=== PATIENT | male | born 1955 | race Caucasian/White ===

== ENCOUNTER → 2017-02-28 | Outpatient (CLI) | payer OTHER ==
[~2017-02-28] MED LIST: CHOL2000 PO
--- NOTE | 2017-02-28 09:17 | DIAGNOSTIC IMAGING REPORT ---
RENAL ULTRASOUND HISTORY: E21.3 Hyperparathyroidism E83.52 Hypercalcemia Looking for kidney abnormality. COMPARISON: None. FINDINGS: Right kidney: 12.2 cm. No hydronephrosis. Normal corticomedullary differentiation and cortical thickness. Large upper pole simple cyst measuring 11 x 10 x 10 cm. Left kidney: 12.8 cm. No hydronephrosis. Normal corticomedullary differentiation and cortical thickness. A 3.4 x 3.3 x 3.1 cm upper pole cyst. Bladder: Bladder is not well-distended. No definite bladder wall thickening. The bilateral ureteral jets are not identified during the examination. The prostate is enlarged measuring 5.5 cm. IMPRESSION: 1. Bilateral renal cysts. 2. No hydronephrosis. 3. The prostate gland is enlarged. Electronically signed by: Cheikh Owusu M.D. 02/28/2017 9:16 AM Dictated Date/Time: 02/28/2017 9:14 AM
== END | disposition home or self-care (01) ==
LOC: C.ULTR 08:36
PROVIDERS: ATTEND Internal Medicine Endocrinology, Diabetes & Metabolism
DX: E83.52 Hypercalcemia (principal); E21.3 Hyperparathyroidism, unspecified; N28.1 Cyst of kidney, acquired; N40.0 Benign prostatic hyperplasia without lower urinary tract symptoms

== ENCOUNTER → 2017-03-22 | Outpatient (CLI) | payer OTHER | END | disposition home or self-care (01) | LOC: C.MAMM 08:53 | PROVIDERS: ATTEND Internal Medicine Endocrinology, Diabetes & Metabolism | DX: M85.851 Other specified disorders of bone density and structure, right thigh (principal); M85.852 Other specified disorders of bone density and structure, left thigh; E21.3 Hyperparathyroidism, unspecified ==

== ENCOUNTER 2017-04-22 11:15 | Emergency (ER) | payer OTHER ==
[~2017-04-22] VITALS: Ht 177.8 cm; Wt 100.7 kg
[2017-04-22 11:17] VITALS: TEMP 36.3; Ht 177.8 cm; Wt 100.7 kg
[2017-04-22] MEDS ORDERED: ONDANSETRON INJ 2 MG/ML 2 ML VIAL IV STA (11:39)
[2017-04-22] MEDS ORDERED: SODIUM CHLORIDE 0.9% 1000ML 1,000 ML IV STA (11:39)
[2017-04-22] MEDS ORDERED: MoRPHine SULFATE 4 MG/ML 1 ML CARP\\VIAL IV PRN (11:45)
[2017-04-22 12:16] LABS: BASO % 0.1 %; BASO ABS # 0.01 K/uL (0-0.2); HEMATOCRIT 42.9 % (42-52); HEMOGLOBIN 14.7 g/dL (14.0-18.0); IG# 0.03 K/uL (0.00-0.02); LYMPH % 4.8 %; LYMPH ABS # 0.56 K/uL (1.2-3.4); MEAN CELL VOLUME 86.7 fL (80-100); MEAN CORPUSCULAR HEMOGLOBIN 29.7 pg (25-34); MEAN CORPUSCULAR HGB CONC 34.3 g/dl (32-36); MEAN PLATELET VOLUME 10.4 fL (7.4-10.4); MONO % 3.5 %; MONO ABS # 0.41 K/uL (0.11-0.59); NEUT % 91.3 %; NEUT ABS # 10.64 K/uL (1.4-6.5); PLATELET COUNT 194 K/uL (130-400); RED CELL DISTRIBUTION WIDTH CV 12.9 % (11.5-14.5); RED CELL DISTRIBUTION WIDTH SD 41.3 fL (36.4-46.3); WHITE BLOOD COUNT 11.65 K/uL (4.8-10.8)
[2017-04-22 12:17] LABS: ALBUMIN 4.2 gm/dl (3.4-5.0); CREATININE 1.1 mg/dl (0.60-1.40); POTASSIUM 3.9 mmol/L (3.5-5.1)
[2017-04-22 12:20] LABS: TOTAL PROTEIN 7.2 gm/dl (6.4-8.2)
--- NOTE | 2017-04-22 12:35 | DIAGNOSTIC IMAGING REPORT ---
ABDOMEN 2VIEW W/PA CHEST RTN HISTORY: 62 years-old Male ABDOMINAL PAIN/GI acute generalized abdominal pain COMPARISON: None available TECHNIQUE: PA view of the chest with erect and supine views of the abdomen FINDINGS: Cardiomediastinal and hilar silhouettes are within normal limits. Linear subsegmental left basilar opacity suggests area of atelectasis or scarring. There is no pneumothorax, pleural effusion or overt pulmonary edema. No lobar airspace consolidation. The bones of the chest appear grossly intact. No pneumoperitoneum or pneumatosis identified. Gas-filled loop of bowel the left midabdomen measuring up to 4.0 cm suggests a loop of large bowel. Mildly distended air-filled loop of small bowel within the central abdomen measuring up to 3.6 cm transversely suggests duodenum without gastric dilation identified. Moderate volume of formed stool involves the right hemicolon and proximal transverse colon. No definite urolith identified. Round calcification of the right hemipelvis suggests a phlebolith. Degenerative changes are seen within the hips and lower lumbar spine. IMPRESSION: 1. No acute process of the chest. 2. Air-filled mildly dilated loop of small bowel within the central abdomen suggests duodenum without gastric distention identified and may be physiologic or reflect sentinel loop ileus. 3. No high-grade small bowel obstruction or pneumoperitoneum identified. The above report was generated using voice recognition software. It may contain grammatical, syntax or spelling errors. Electronically signed by: Uzair Mccarty M.D. 04/22/2017 12:34 PM Dictated Date/Time: 04/22/2017 12:30 PM
[2017-04-22] MEDS ORDERED: DOCUSATE SODIUM 100 MG CAP PO ONE (12:45)
[2017-04-22] MEDS ORDERED: OPTIRAY 320 IV PRN (12:45)
[2017-04-22] MEDS ORDERED: MAGNESIUM CITRATE 296 ML/BTL PO ONE (12:45)
[2017-04-22] MEDS ORDERED: TAMS0.4C38 PO (13:07)
[2017-04-22] MEDS ORDERED: CHOL20005 PO (13:07)
--- NOTE | 2017-04-22 13:27 | DIAGNOSTIC IMAGING REPORT ---
ABDOMEN AND PELVIS CT WITH IV CONTRAST CT DOSE: 737.18 mGy.cm HISTORY: Acute generalized abdominal pain abd pain, constipation, enlarged bowel loops TECHNIQUE: Multiaxial CT images of the abdomen and pelvis were performed following the use of intravenous contrast. A dose lowering technique was utilized adhering to the principles of ALARA. COMPARISON STUDY: Acute abdominal series radiographs of same day FINDINGS: Lobular multiloculated cystic structure measuring up to 6.3 x 3.4 cm at the level of the left lung base abutting the pericardium within the region of the inferior major fissure nicely seen on image 16 of series 3 without suspicious soft tissue component identified. There is mild dependent subsegmental bibasilar atelectasis. Partially imaged right infrahilar calcifications noted. No pneumatosis or pneumoperitoneum identified. Your cardiac chambers are unremarkable. There is no intrahepatic biliary ductal dilation. Suggested fatty infiltration of the liver. Spleen, pancreas, gallbladder and adrenal glands are within normal limits. Low attenuating lesions of the kidneys bilaterally measuring up to 9.5 x 7.7 cm on the right suggests benign renal cysts. The lesions of the left are too small to characterize. There is an indeterminate soft tissue attenuating 8 x 7 mm lesion of the posterior aspect appear pole right kidney, image 201 series 3. 2 mm nonobstructing calculus of the interpolar right kidney. No ureteral calculi or obstructive uropathy. Hutchins catheter is noted within a partially collapsed bladder lumen which demonstrates wall thickening and trabeculation. Prostate is enlarged. Linear 4 mm calcification seen within the region of the urethra. Mild perivesicular stranding. Aorta is normal in course and caliber. No bulky adenopathy. Duodenum measures the upper limits of normal at 2.7 cm with air-fluid level. Additionally, there are mildly prominent loops of jejunum in left upper abdomen measuring up to 2.8 cm transversely with air-fluid levels. The remainder of the small bowel appears normal. Nondistention of the rectosigmoid. Diverticulosis or acute diverticulitis. Appendix. Mild diastases recti. Intervertebral disc space narrowing at L5-S1. IMPRESSION: 1. Prostatomegaly with suggested chronic bladder outlet obstruction and mild perivesicular stranding, of unknown etiology. Correlate with urinalysis to exclude cystitis. 2. Mildly dilated duodenum and proximal jejunum with air-fluid levels is noted without evidence of bowel obstruction. These findings are likely physiologic or may reflect a mild ileus/enteritis. No significant bowel wall thickening or associated inflammatory changes. 3. Bilateral renal cysts with indeterminate 8 mm lesion of the posterior aspect inferior pole right kidney suggesting complex cyst or alternatively a small renal neoplasm. 4. Mild loculated fluid at the level of the left lung base within the region of the inferior left major fissure. 5. Normal appendix. Electronically signed by: Uzair Mccarty M.D. 04/22/2017 1:26 PM Dictated Date/Time: 04/22/2017 1:10 PM
[2017-04-22 15:20] VITALS: BP 122/74; PULSE 77; O2SAT 98
--- NOTE | 2017-04-23 13:12 | EMERGENCY ROOM VISIT NOTE ---
ED Visit Note First contact with patient: 11:21 Chief Complaint: I am unable to urinate or have a bowel movement. History of Present Illness: Mr. Patel is a 62 year-old white male who ambulates in the ED accompanied by his complaining of inability to void and have a bowel movement. Historically patient reports enlarged prostrate. Patient reports his last bowel movement was approximately 2.5 days ago and his last ability to urinate without difficulty was approximately 10-12 hours ago. Patient reports that he awoke at 4:00 this morning, approximately 7 hours ago, with the urge to move his bowels. He went to the bathroom and was unable to move his bowels but he was also unable to urinate. Since that time his symptoms have been constant. He reports he gave himself an enema and had a small hard bowel movement but still had the urge to move his bowels. The symptoms were associated with a gradual onset of lower abdominal pain primarily in the central portion of the abdomen. He describes this as a pressure discomfort. He rates his discomfort 8/10. The pain was nonradiating. The pain worsens with palpation. He has not identified any alleviating factors related to the pain. He has not taken any medication for pain prior to arrival at the hospital. He denies any associated symptoms with his pain including fevers, chills, sweats, skin eruptions, skin color changes, upper respiratory tract symptoms, shortness of breath, chest pain, nausea, vomiting, diarrhea, constipation, rectal bleeding, black/tarry stools, urinary symptoms, hematuria, back/flank pain. Review of Systems: As noted above in history of present illness. All body systems were reviewed and found to be negative as noted above. Past Medical History: Kidney stone, prostate enlargement, encephalitis, carpal tunnel release. Current Medications: Flomax and vitamin D3. Allergies to Medications: Alcohol, lactose. Social History: Patient is currently employed; he feels safe in his home environment; he denies tobacco and alcohol use. Physical Examination: Vital Signs: Date Time Temp Pulse Resp B/P (MAP) Pulse Ox O2 Delivery O2 Flow Rate FiO2 04/22/17 15:20 77 18 122/74 98 04/22/17 12:44 78 18 132/71 96 Room Air 04/22/17 11:17 36.3 104 20 157/111 99 Room Air GENERAL: 62-year-old male in moderate distress due to pain, nontoxic-appearing, afebrile and hemodynamically stable. NEUROLOGICAL: Awake, alert and oriented to person, place and time. Answering questions appropriately and following commands. Normal gait. Good hand eye coordination. SKIN: Warm, dry and pink. No soft tissue eruptions or trauma noted. HEENT: Atraumatic and normocephalic. PERRL. Sclera white and conjunctiva pink. Oral cavity moist and pink. Pharynx is nonerythematous or edematous. Speech normal. No lymphadenopathy. Trachea midline. No jugular venous distention. BACK: No tenderness over the bony spine. No CVA tenderness. THORAX: Lungs sounds are clear to auscultation and equal bilaterally with symmetrical chest wall. No wheezing, rales or rhonchi. No crepitus, tenderness , subcutaneous air or deformities noted. HEART: Regular rate and rhythm. No gallops, rubs or murmurs are appreciated. ABDOMEN: Tender over the lower abdomen. Firm and moderately tender throughout the lower abdomen. Decreased bowel sounds in all quadrants. No guarding, rigidity or organomegaly. EXTREMITIES: Moves all extremities well on command and with purpose. All distal neurovascular statuses are intact and equal bilaterally. ED Course: Patient is assessed as noted above. Patient's medication list was reviewed. Laboratory Testing: Test 04/22/17 11:40 04/22/17 11:41 04/22/17 12:10 Range/Units Urine Color YELLOW Urine Appearance CLEAR CLEAR Urine pH 5.0 4.5-7.5 Urine Specific [place] 1.018 1.000-1.030 Urine Protein NEG NEG Urine Glucose (UA) NEG NEG Urine Ketones NEG NEG Urine Occult Blood 1+ NEG Urine Nitrite NEG NEG Urine Bilirubin NEG NEG Urine Urobilinogen NEG NEG Urine Leukocyte Esterase NEG NEG Urine WBC (Auto) 1-5 0-5 /hpf Urine RBC (Auto) 5-10 0-4 /hpf Urine Hyaline Casts (Auto) 1-5 0-5 /lpf Urine Epithelial Cells (Auto) 0-5 0-5 /lpf Urine Bacteria (Auto) NEG NEG Sodium Level 137 136-145 mmol/L Potassium Level 3.9 3.5-5.1 mmol/L Chloride Level 106 98-107 mmol/L Carbon Dioxide Level 20 21-32 mmol/L Anion Gap 11.0 3-11 mmol/L Blood Urea Nitrogen 15 7-18 mg/dl Creatinine 1.10 0.60-1.40 mg/dl Est Creatinine Clear Calc Drug Dose 82.8 ml/min Estimated GFR () 82.9 Estimated GFR (Non- 71.6 BUN/Creatinine Ratio 13.7 10-20 Random Glucose 159 70-99 mg/dl Calcium Level 10.0 8.5-10.1 mg/dl Total Bilirubin 0.6 0.2-1 mg/dl Direct Bilirubin 0.2 0-0.2 mg/dl Aspartate Amino Transf (AST/SGOT) 25 15-37 U/L Alanine Aminotransferase (ALT/SGPT) 41 12-78 U/L Alkaline Phosphatase 69 45-117 U/L Total Protein 7.2 6.4-8.2 gm/dl Albumin 4.2 3.4-5.0 gm/dl Lipase 139 73-393 U/L White Blood Count 11.65 4.8-10.8 K/uL Red Blood Count 4.95 4.7-6.1 M/uL Hemoglobin 14.7 14.0-18.0 g/dL Hematocrit 42.9 42-52 % Mean Corpuscular Volume 86.7 80-100 fL Mean Corpuscular Hemoglobin 29.7 25-34 pg Mean Corpuscular Hemoglobin Concent 34.3 32-36 g/dl Platelet Count 194 130-400 K/uL Mean Platelet Volume 10.4 7.4-10.4 fL Neutrophils (%) (Auto) 91.3 % Lymphocytes (%) (Auto) 4.8 % Monocytes (%) (Auto) 3.5 % Eosinophils (%) (Auto) 0.0 % Basophils (%) (Auto) 0.1 % Neutrophils # (Auto) 10.64 1.4-6.5 K/uL Lymphocytes # (Auto) 0.56 1.2-3.4 K/uL Monocytes # (Auto) 0.41 0.11-0.59 K/uL Eosinophils # (Auto) 0.00 0-0.5 K/uL Basophils # (Auto) 0.01 0-0.2 K/uL RDW Standard Deviation 41.3 36.4-46.3 fL RDW Coefficient of Variation 12.9 11.5-14.5 % Immature Granulocyte % (Auto) 0.3 % Immature Granulocyte # (Auto) 0.03 0.00-0.02 K/uL Acute Abdominal X-Rays: Were read by myself and the radiologist showing a normal PA chest with no signs of infiltrates, effusions or pneumothorax and a normal heart silhouette. Abdominal component shows air-fluid mildly dilated loops of small bowel within the central abdomen of questionable etiology. No high-grade small bowel obstruction or pneumoperitoneum was noted. IV Contrast Abdominal/Pelvic CT: Was reviewed by myself and read by the radiologist showing prostatomegaly with mild perivesicular stranding of questionable etiology, mildly dilated duodenum and proximal jejunum with air- fluid levels noted without evidence of bowel obstructions of questionable etiology, no significant bowel wall thickening or associated inflammatory changes, bilateral renal cysts of questionable etiology, mildly loculated fluid at the level of the left lung base within the region of the inferior left major fissure and normal-appearing appendix. A bladder scan was performed that showed over 750 mL of urine in the bladder. A Hutchins catheter was placed and by discharge patient had an output of 1500 mL of urine. Patient was hydrated with normal saline and initially received 4 mg of morphine IV for pain and 4 mg of Zofran IV. Reassessments patient was feeling better. He was given 150 mg of mag citrate and 100 mg of Dulcolax by mouth for his constipation. Patient's case was reviewed with Dr. Andrade; we agreed on diagnostic approach, treatment, disposition and plan. Patient was educated about today's findings and instructed on his treatment plan ; he verbalized understanding and agreement with this plan. Clinical Impression: Acute urinary retention. Constipation. Lower abdominal pain. Decision-Making: Initially my differential diagnosis I considered urinary retention, cystitis, bowel obstruction, constipation, appendicitis and other causes. Disposition: Patient discharged to home in stable condition accompanied by his ; prior to departure he was reassessed and subjectively reported he was feeling much better. He rated his lower abdominal pain discomfort 2/10. On physical examination reassessment he was less distended and less tender throughout the central abdomen. Additionally he reported he had a small bowel movement but was still having the feelings like he needed to move his bowels. Plan: Patient was encouraged you 650 mg of acetaminophen every 6 hours as needed for pain. Patient was encouraged to stay well-hydrated with increased clear fluids and increase dietary fiber. Patient was given the rest of the mag citrate and encouraged to use it if he had not had a large bowel movement in the next 2 hours. Patient was encouraged to use [id number] Colace 100 mg 2 times a day until return of normal bowel movements. Patient was encouraged to call his urologist on Sunday and request follow-up care and treatment and removal of his urinary catheter. Patient was encouraged to contact his family physician for recheck of his constipation. Patient was encouraged to return the ED for worsening abdominal pain, bloody urine, bloody stools, fevers, vomiting or any new/concerning symptoms.
== END 2017-04-22 15:38 | disposition home or self-care (01) ==
LOC: C.EDB 11:16 → C.EDC 15:38
DX: R33.9 Retention of urine, unspecified (principal); K59.00 Constipation, unspecified; N40.0 Benign prostatic hyperplasia without lower urinary tract symptoms; E73.8 Other lactose intolerance; Z91.048 Other nonmedicinal substance allergy status

== ENCOUNTER → 2017-04-26 | Outpatient (CLI) | payer OTHER ==
[~2017-04-26] MED LIST changes: -CHOL2000 PO; +CHOL20005 PO; +TAMS0.4C38 PO
== END | disposition home or self-care (01) ==
LOC: C.PATHSPEC 18:02
PROVIDERS: ATTEND Nurse Practitioner Adult Health
DX: R31.9 Hematuria, unspecified (principal)

== ENCOUNTER 2021-04-12 10:16 | Inpatient (IN) ==
--- NOTE | 2021-04-12 10:49 | Emergency Department Note ---
History of Present Illness General Chief complaint: Shortness of Breath/Dyspnea Stated complaint: SOB, COUGH FOR 3 WEEKS, DIZZY AFTER STANDING Time Seen by Provider: 04/12/21 10:33 History of Present Illness 66-year-old male presents to the ED with a chief complaint minimally productive cough for the past 3 weeks productive for an occasional uncolored phlegm. He also reports some exertional dyspnea over the past 2 weeks. He states that he does have a little postnasal drip associated with his phlegm. He states that he felt a little dizzy with getting up recently. His PCPs office and they told him to come here to get checked. Denies any pain or swelling in his legs. No chest pains. No additional complaints. He does have a history of DVT following a shoulder surgery in the past. Not on anticoagulation. Home Medications Medication Instructions Recorded Confirmed Type cholecalciferol (vitamin D3) 50 2,000 unit PO BID 07/31/18 03/12/19 History mcg (2,000 unit) tablet (Vitamin D3) cyanocobalamin (vitamin B-12) 1,000 mcg PO QAM 09/02/18 03/12/19 History 1,000 mcg tablet (Vitamin B-12) sodium,potassium,mag sulfates 17.5 177 ml PO DAILY #354 ml 02/18/19 03/12/19 Rx gram-3.13 gram-1.6 gram oral soln (Suprep Bowel Prep Kit) dutasteride 0.5 mg capsule 0.5 mg PO DAILY #90 cap 03/03/21 03/03/21 Rx tamsulosin 0.4 mg capsule (Flomax) 0.4 mg PO DAILY #90 cap 03/03/21 03/03/21 Rx Allergies Allergy/AdvReac Type Severity Reaction Status Date / Time alcohol Allergy Intermediate SWELLING, Verified 03/12/19 08:02 RASH lactose Allergy Intermediate INTOLERANCE Verified 03/12/19 08:02 No Known Drug Allergies Allergy Unknown . Verified 03/12/19 08:02 Past Med/Surg History Medical History Blood clotting disorder F/U PCP BPH (benign prostatic hyperplasia) BPH with obstruction/lower urinary tract symptoms Degenerative disc disease DVT (deep venous thrombosis) S/P DVT RIGHT ARM WITH SHOULDER SURGERY-DX'D WITH BLOOD CLOTTING DISORDER-WAS ON THINNERS/NOW REMOVED BY PCP History of encephalitis AT AGE 12 Surgical History History of carpal tunnel release RT History of colonoscopy History of parathyroidectomy History of repair of rotator cuff RIGHT08/2018 [facility] History of wisdom tooth extraction Social History Smoking Status: Former smoker Second Hand Exposure: Yes (PARENTS SMOKED); Hx Alcohol Use: No Hx Substance Use: No Preferred Language: Cuban Communication Ability: Effective Lumite Injector Required: No Beliefs That Will Affect Care: None Current Living Situation: Spouse Feels Safe at Home: Yes Assistive Devices: Glasses Review of Systems A total of 10 systems reviewed and were otherwise negative Physical Exam Vital Signs Vital Signs - 24 hr 04/12/21 10:23 04/12/21 10:43 04/12/21 10:51 Temperature 36.3 C L Temperature Source Temporal Artery Scan Pulse Rate 53 L 69 Pulse Rate [Apical] Pulse Rate from SpO2 Sensor Pulse Rhythm [Apical] Respiratory Rate 18 20 Respiratory Effort / Characteristics Respiratory Depth Blood Pressure 137/75 Blood Pressure [Left Arm] Blood Pressure Mean 95 Blood Pressure Mean [Left Arm] Pulse Oximetry 97 98 Oxygen Delivery Method Room Air Room Air Sepsis Recent Fever Within 48 Hours No Sepsis New/Unexplained Change in Mental Status No Sepsis Action Taken by Nursing No Action Required 04/12/21 10:55 04/12/21 10:56 04/12/21 11:00 Temperature Temperature Source Pulse Rate 38 L Pulse Rate [Apical] 38 L Pulse Rate from SpO2 Sensor 39 L Pulse Rhythm [Apical] Irregular Respiratory Rate 18 18 Respiratory Effort / Characteristics Non-Labored Spontaneous Respiratory Depth Normal Blood Pressure 120/72 Blood Pressure [Left Arm] 122/69 Blood Pressure Mean 88 Blood Pressure Mean [Left Arm] 86 Pulse Oximetry 98 95 Oxygen Delivery Method Room Air Room Air Sepsis Recent Fever Within 48 Hours Sepsis New/Unexplained Change in Mental Status Sepsis Action Taken by Nursing 04/12/21 11:10 04/12/21 11:20 04/12/21 11:30 Temperature Temperature Source Pulse Rate 65 63 61 Pulse Rate [Apical] Pulse Rate from SpO2 Sensor 61 57 L Pulse Rhythm [Apical] Respiratory Rate 20 19 22 Respiratory Effort / Characteristics Respiratory Depth Blood Pressure 125/73 Blood Pressure [Left Arm] Blood Pressure Mean 90 Blood Pressure Mean [Left Arm] Pulse Oximetry 94 96 Oxygen Delivery Method Sepsis Recent Fever Within 48 Hours Sepsis New/Unexplained Change in Mental Status Sepsis Action Taken by Nursing 04/12/21 11:40 04/12/21 11:50 04/12/21 12:00 Temperature Temperature Source Pulse Rate 60 38 L 63 Pulse Rate [Apical] Pulse Rate from SpO2 Sensor 55 L 36 L 59 L Pulse Rhythm [Apical] Respiratory Rate 13 18 21 Respiratory Effort / Characteristics Respiratory Depth Blood Pressure 118/74 Blood Pressure [Left Arm] Blood Pressure Mean 88 Blood Pressure Mean [Left Arm] Pulse Oximetry 96 96 96 Oxygen Delivery Method Sepsis Recent Fever Within 48 Hours Sepsis New/Unexplained Change in Mental Status Sepsis Action Taken by Nursing 04/12/21 12:10 Temperature Temperature Source Pulse Rate 34 L Pulse Rate [Apical] Pulse Rate from SpO2 Sensor 35 L Pulse Rhythm [Apical] Respiratory Rate 19 Respiratory Effort / Characteristics Respiratory Depth Blood Pressure Blood Pressure [Left Arm] Blood Pressure Mean Blood Pressure Mean [Left Arm] Pulse Oximetry 95 Oxygen Delivery Method Sepsis Recent Fever Within 48 Hours Sepsis New/Unexplained Change in Mental Status Sepsis Action Taken by Nursing CONSTITUTIONAL/VITAL SIGNS: Reviewed / noted above. GENERAL: Non-toxic in appearance. INTEGUMENTARY: Warm, dry, and [place]. HEAD: Normocephalic. EYES: without scleral icterus or trauma. ENT/OROPHARYNX: clear and moist. LYMPHADENOPATHY/NECK: Is supple without lymphadenopathy or meningismus. RESPIRATORY: Clear to auscultation bilaterally. No increased work of breathing. CARDIOVASCULAR: Regular rate and rhythm. GI/ABDOMEN: Soft and nontender. No organomegaly or pulsatile mass. EXTREMITIES: Warm and well perfused. BACK: No CVA tenderness. NEUROLOGICAL: Intact without focal deficits. PSYCHIATRIC: normal affect. MUSCULOSKELETAL: Normally developed with good muscle tone. TRIAGE NURSING DOCUMENTATION REVIEWED. Course Administered Medications Discontinued Medications Aspirin (Aspirin Chew 324 Mg) 324 mg PO NOW STA Stop: 04/12/21 12:42 Last Admin: 04/12/21 12:55 Dose: 324 mg Documented by: [id number] Ioversol (Optiray 320 125ml) 119 ml IV ONCE ONE Stop: 04/12/21 12:30 Last Admin: 04/12/21 12:34 Dose: 119 ml Documented by: [id number] Medical Decision Making Differential Diagnosis The differential was considered includes acute myocardial infarction, acute coronary syndrome, myocarditis, pericarditis, pericardial effusions /tamponad, esophageal perforation, pulmonary embolism, pneumonia, pneumothorax, cardiomyopathy, congestive heart, anemia , COPD/asthma exacerbation. Medical Records Attestation: I reviewed the patient's medical records. Home Medications Current Medication List: was personally reviewed by me Laboratory Data Attestation: I reviewed the patient's lab results. Result diagrams: 04/12/21 10:56 04/12/21 10:56 Lab Results 04/12/21 04/12/21 04/12/21 Range/Units 10:53 10:56 10:56 WBC 7.30 (4.8-10.8) K/uL RBC 5.12 (4.7-6.1) M/uL Hgb 15.4 (14.0-18.0) g/dL Hct 45.1 (42-52) % MCV 88.1 (80-100) fL MCH 30.1 (25-34) pg MCHC 34.1 (32-36) g/dL RDW Std Deviation 45.5 (36.4-46.3) fL RDW Coeff of Stoney 14.0 (11.5-14.5) % Plt Count 170 (130-400) K/uL MPV 11.9 H (7.4-10.4) fL Immature Gran % (Auto) 0.0 % Neut % (Auto) 74.7 % Lymph % (Auto) 20.3 % Lawrence % (Auto) 4.4 % Eos % (Auto) 0.3 % Baso % (Auto) 0.3 % Neut # (Auto) 5.46 (1.4-6.5) K/uL Lymph # (Auto) 1.48 (1.2-3.4) K/uL Lawrence # (Auto) 0.32 (0.11-0.59) K/uL Eos # (Auto) 0.02 (0-0.5) K/uL Baso # (Auto) 0.02 (0-0.2) K/uL Immature Gran # (Auto) 0.00 (0.00-0.02) K/uL PT 10.4 (9.0-12.0) Seconds INR 1.0 (0.9-1.1) APTT 24.2 (21.0-31.0) Seconds PTT Ratio 0.9 D-Dimer 700 H* (0-500) ug/L FEU Sodium (136-145) mmol/L Potassium (3.5-5.1) mmol/L Chloride (98-107) mmol/L Carbon Dioxide (21-32) mmol/L Anion Gap (3-11) BUN (6-23) mg/dl Creatinine (0.6-1.4) mg/dl Est Cr Clr Drug Dosing ml/min Est GFR ( Amer) ml/min Est GFR (Non-Af Amer) ml/min BUN/Creatinine Ratio (10-20) Glucose (70-99(Fasting)) mg/dl Calcium (8.5-10.1) mg/dl Total Bilirubin (0.2-1.0) mg/dl AST (13-39) U/L ALT (7-52) U/L Alkaline Phosphatase (34-104) U/L Troponin I (0-0.04) ng/ml Total Protein (6.0-8.3) gm/dl Albumin (3.4-5.0) gm/dl Globulin (2.5-4.0) gm/dl Albumin/Globulin Ratio (0.9-2) SARS-CoV-2, RNA, NAAT NEGATIVE (NEGATIVE) 04/12/21 Range/Units 10:56 WBC (4.8-10.8) K/uL RBC (4.7-6.1) M/uL Hgb (14.0-18.0) g/dL Hct (42-52) % MCV (80-100) fL MCH (25-34) pg MCHC (32-36) g/dL RDW Std Deviation (36.4-46.3) fL RDW Coeff of Stoney (11.5-14.5) % Plt Count (130-400) K/uL MPV (7.4-10.4) fL Immature Gran % (Auto) % Neut % (Auto) % Lymph % (Auto) % Lawrence % (Auto) % Eos % (Auto) % Baso % (Auto) % Neut # (Auto) (1.4-6.5) K/uL Lymph # (Auto) (1.2-3.4) K/uL Lawrence # (Auto) (0.11-0.59) K/uL Eos # (Auto) (0-0.5) K/uL Baso # (Auto) (0-0.2) K/uL Immature Gran # (Auto) (0.00-0.02) K/uL PT (9.0-12.0) Seconds INR (0.9-1.1) APTT (21.0-31.0) Seconds PTT Ratio D-Dimer (0-500) ug/L FEU Sodium 141 (136-145) mmol/L Potassium 4.0 (3.5-5.1) mmol/L Chloride 109 H (98-107) mmol/L Carbon Dioxide 26 (21-32) mmol/L Anion Gap 6 (3-11) BUN 15 (6-23) mg/dl Creatinine 0.96 (0.6-1.4) mg/dl Est Cr Clr Drug Dosing 86.3 ml/min Est GFR ( Amer) 95.1 ml/min Est GFR (Non-Af Amer) 82.0 ml/min BUN/Creatinine Ratio 15.6 (10-20) Glucose 169 H (70-99(Fasting)) mg/dl Calcium 9.4 (8.5-10.1) mg/dl Total Bilirubin 0.6 (0.2-1.0) mg/dl AST 27 (13-39) U/L ALT 45 (7-52) U/L Alkaline Phosphatase 47 (34-104) U/L Troponin I 0.05 H* (0-0.04) ng/ml Total Protein 6.6 (6.0-8.3) gm/dl Albumin 4.3 (3.4-5.0) gm/dl Globulin 2.3 L (2.5-4.0) gm/dl Albumin/Globulin Ratio 1.9 (0.9-2) SARS-CoV-2, RNA, NAAT (NEGATIVE) Imaging Data Radiologist's Impression: Chest CTA 04/12/21 10:43 CT angio chest PE protocol CLINICAL HISTORY: Dyspnea TECHNIQUE: Multidetector row helical CT of the chest was performed with angiographic protocol. Coronal and sagittal reformations were obtained. Coronal and sagittal MIPS were obtained from the axial data set and were submitted for review. Automated dose lowering techniques and/or adjustment according to patient size were utilized for this exam. Comparison: None available at the time of this dictation. FINDINGS: Lungs and pleura: Atelectasis versus scarring is seen in the dependent portions of the lungs. Redemonstrated loculated fluid at the left lung base. Heart and pericardium: Heart size is normal. No pericardial effusion. Vessels: No evidence of pulmonary embolism. Mediastinum and andrea: Unremarkable. Chest wall and lower neck: Unremarkable. Abdomen: Unremarkable. Bones: Degenerative changes in the thoracic spine. IMPRESSION: No evidence of pulmonary embolism. ACT 112: Negative or not required by law. Electronically signed by: Noah Jama M.D. 04/12/2021 12:56 PM ECG Data Attestation: I personally reviewed and interpreted this ECG as follows: Additional Comments: Twelve-lead EKG shows a sinus rhythm at a rate of 39 with a second-degree heart block likely type II with a 2-1 conduction. Right bundle branch block. T wave inversions inferiorly. Normal QTC. MDM Narrative 66-year-old male presents with exertional dyspnea, little lightheadedness today and cough for 3 weeks. Twelve-lead EKG shows a sinus rhythm at a rate of 39 with a second-degree heart block likely type II with a 2-1 conduction. Right bundle branch block. T wave inversions inferiorly. CBC and chemistry panel is unremarkable. D-dimer slightly elevated. Troponin is slightly elevated. Glucose is 169. Covid test was negative. CT scan did not show PE. Spoke with Dr. Piña about the patient. Lyme test is pending. The patient will be seen by the hospitalist for further inpatient evaluation and care. Patient remained clinically stable during his ED stay. He was treated with aspirin p.o. Impression & Plan AV heart block, Elevated troponin Discharge Plan Visit Data Chief Complaint: Shortness of Breath/Dyspnea Stated Complaint: SOB, COUGH FOR 3 WEEKS, DIZZY AFTER STANDING ED Provider: Fahad Molina Discharge Problem: AV heart block, Elevated troponin Patient Disposition: Being Evaluated by Hospitalist Forms Stand Alone Forms: [facility], Virtual Emergency Department, Important Visit Information Prescriptions Prescriptions: No Action Suprep Bowel Prep Kit 17.5-3.13-1.6 gram recon soln 177 ml PO DAILY Qty: 354 RF: 0 tamsulosin [Flomax] 0.4 mg capsule 0.4 mg PO DAILY Qty: 90 RF: 3 dutasteride 0.5 mg capsule 0.5 mg PO DAILY Qty: 90 RF: 3 cholecalciferol (vitamin D3) [Vitamin D3] 2,000 unit Tablet 2,000 unit PO BID RF: 0 cyanocobalamin (vitamin B-12) [Vitamin B-12] 1,000 mcg Tablet 1,000 mcg PO QAM RF: 0 Referrals Referrals: Ian Hubbard MD [Primary Care Provider] -
[2021-04-12 11:11] LABS: Basophils # (auto) 0.02 K/uL (0-0.2); Basophils % (auto) 0.3 %; Eosinophils # (auto) 0.02 K/uL (0-0.5); Eosinophils % (auto) 0.3 %; Hematocrit (blood only) 45.1 % (42-52); Hemoglobin 15.4 g/dL (14.0-18.0); Lymphocytes # (auto) 1.48 K/uL (1.2-3.4); Lymphocytes % (auto) 20.3 %; Mean Corpuscular Hemoglobin 30.1 pg (25-34); Mean Corpuscular Hgb Conc 34.1 g/dL (32-36); Mean Corpuscular Volume 88.1 fL (80-100); Mean Platelet Volume 11.9 fL (7.4-10.4); Monocytes # (auto) 0.32 K/uL (0.11-0.59); Monocytes % (auto) 4.4 %; Neutrophils # (auto) 5.46 K/uL (1.4-6.5); Neutrophils % (auto) 74.7 %; Platelet Count 170 K/uL (130-400); RDW Standard Deviation 45.5 fL (36.4-46.3); Red Blood Count 5.12 M/uL (4.7-6.1)
[2021-04-12 11:22] LABS: Partial Thromboplastin Ratio 0.9; Partial Thromboplastin Time 24.2 Seconds (21.0-31.0); Prothrombin Time 10.4 Seconds (9.0-12.0)
[2021-04-12 11:28] LABS: D Dimer 700 ug/L FEU (0-500)
[2021-04-12 11:49] LABS: Troponin I 0.05 ng/ml (0-0.04)
[2021-04-12 11:53] LABS: Albumin Globulin Ratio 1.9 (0.9-2); Albumin Level 4.3 gm/dl (3.4-5.0); BUN Creatinine Ratio 15.6 (10-20); Bilirubin,Total 0.6 mg/dl (0.2-1.0); Calcium 9.4 mg/dl (8.5-10.1); Creatinine Clr Calc Pharmacy 86.3 ml/min; Est GFR (African American) 95.1 ml/min; Globulin 2.3 gm/dl (2.5-4.0); Total Protein 6.6 gm/dl (6.0-8.3)
[2021-04-12] MEDS ORDERED: OPTIRAY 320 125ml IV ONE (12:29)
[2021-04-12] MEDS ORDERED: ASPIRIN CHEW 324 MG PO STA (12:41)
--- NOTE | 2021-04-12 12:58 | CT Scan Report ---
CT angio chest PE protocol CLINICAL HISTORY: Dyspnea TECHNIQUE: Multidetector row helical CT of the chest was performed with angiographic protocol. Mejía l and sagittal reformations were obtained. Coronal and sagittal MIPS were obtained from the axial ottoniel a set and were submitted for review. Automated dose lowering techniques and/or adjustment according to patient size were utilized for this exam. Comparison: None available at the time of this dictation. FINDINGS: Lungs and pleura: Atelectasis versus scarring is seen in the dependent portions of the lungs. Redemon strated loculated fluid at the left lung base. Heart and pericardium: Heart size is normal. No pericardial effusion. Vessels: No evidence of pulmonary embolism. Mediastinum and andrea: Unremarkable. Chest wall and lower neck: Unremarkable. Abdomen: Unremarkable. Bones: Degenerative changes in the thoracic spine. IMPRESSION: No evidence of pulmonary embolism. ACT 112: Negative or not required by law. Electronically signed by: Noah Jama M.D. 04/12/2021 12:56 PM
[2021-04-12 13:04] LABS: Lyme Ab IgG w/WB Rflx Negative (Negative); Lyme Ab IgM w/WB Rflx Negative (Negative)
--- NOTE | 2021-04-12 13:26 | History & Physical Report ---
Date of Service April 12, 2021 Assessment & Plan (1) AV heart block: Plan: Second degree type II with return back to NSR when HR is in the 60s- asymptomatic - P-P and R-R intervals are regular throughout - Bp with MAPS >70 and SBP>140 - Lyme titer pending- will cover with Rocephin until done - ESR and CRP pending - ECHO - with history of viral prodrome eval for pericarditis or effusion- although asymptomtic - Follw troponin (2) Elevated troponin: Plan: Likely related to MVo2 mismatch- type II - Continue to trend troponin and symptoms - EST in 2006 that was normal - ECHO as above eval for any RWMA (3) BPH with obstruction/lower urinary tract symptoms: Plan: Continue tamsulosin (4) Heterozygous factor V Leiden mutation: Plan: With history of Right upper extremity DVT - D-dimer elevated even with age adjusted- CTA of chest negative for PE - Wells 1- will get bilateral venous Doppler of legs for completeness (5) Elevated serum glucose: Plan: Elevated random glucose without the diagnosis of DM - Carb consistent diet - AC/HS glucose checks with coverage if >180 (6) Abnormal chest CT: Plan: Loculated cystic left lower lobe collection with stable measurements since 2018 - most likely pseudotumor as this is loculated in the pulmonary fissure - Asymptomatic and without evidence of overt heart failure as well - Follow with PCP History of Present Illness Primary Care Provider: Ian Hubbard MD 66 YOM with past medical history of: BPH, carpal tunnel, hyperparathyroidism, renal cyst, pulmonary cystic fluid collection, Factor V gene mutation and upper extremity DVT. Patient comes to the EMD today for complaints of dizziness. On his evaluation, he was noted to have second degree type II heart block with HR in the 30-60s as well as elevated D-dimer. Patient states that about 2 weeks ago he had a period of fatigue, chest congestion, mild arthralgias, and a cough. He did not get any testing done at that time. Very close to that onset, he started noticing that he would get dizzy upon standing up as well as dyspnea when going up stairs or doing anything strenuous. He has not noticed his HR being slow but has at times noticed his HR going fast. The patient denies any chest pain, n/v, back or shoulder pain. His dizziness occurs from sitting to standing only and lasts 10-15 seconds and goes away, this is not associated with any sweating feeling, flashings of light, blurry vision, or room spinning. His labs are notable for Troponin I of 0.05 and D- dimer of 700. CTA of the chest was performed which is negative for PE, but continues to note left lower lung loculated fluid collection- remains same size and location since 2018. He does not endorse any leg pain or leg swelling. His previous VTE was in his right upper extremity following rotator cuff surgery. He is currently not on any custodial anticoagulation. Cardiology was consulted by the [facility] physician. Lyme titer was sent. Will empirically place on Rocephin while this is pending. Continue cardiology consult and follow him on PCU. ECHO pending on admission. Father has history of requiring pacemaker in his 70s- he is unsure of why COVID test on admission is: NEGATIVE Allergies Allergy/AdvReac Type Severity Reaction Status Date / Time alcohol Allergy Intermediate SWELLING, Verified 04/12/21 14:09 RASH lactose Allergy Intermediate INTOLERANCE Verified 04/12/21 14:09 benzyl alcohol Allergy Unknown Unknown Verified 04/12/21 14:18 No Known Drug Allergies Allergy Unknown . Verified 04/12/21 14:09 Home Medications Medication Instructions Recorded Confirmed Type cholecalciferol (vitamin D3) 50 2,000 unit PO BID 07/31/18 04/12/21 History mcg (2,000 unit) tablet (Vitamin D3) cyanocobalamin (vitamin B-12) 1,000 mcg PO QAM 09/02/18 04/12/21 History 1,000 mcg tablet (Vitamin B-12) Elderberry Zinc Vitamin C 1 tab PO BID 04/12/21 04/12/21 History dutasteride 0.5 mg capsule 0.5 mg PO QAM 04/12/21 04/12/21 History tamsulosin 0.4 mg capsule (Flomax) 0.4 mg PO HS 04/12/21 04/12/21 History Past Med/Surg History Medical History Blood clotting disorder F/U PCP BPH (benign prostatic hyperplasia) BPH with obstruction/lower urinary tract symptoms Degenerative disc disease DVT (deep venous thrombosis) S/P DVT RIGHT ARM WITH SHOULDER SURGERY-DX'D WITH BLOOD CLOTTING DISORDER-WAS ON THINNERS/NOW REMOVED BY PCP History of encephalitis AT AGE 12 Surgical History History of carpal tunnel release RT History of colonoscopy History of parathyroidectomy History of repair of rotator cuff RIGHT08/2018 [facility] History of wisdom tooth extraction Social History Smoking Status: Never smoker Second Hand Exposure: Yes (PARENTS SMOKED); Hx Alcohol Use: No Hx Substance Use: No Preferred Language: Hungarian Communication Ability: Effective Membership Director Required: No Beliefs That Will Affect Care: None Current Living Situation: Spouse Other Information That Helps Us Care for You: No Feels Safe at Home: Yes Safety Concerns: Feels Safe At This Time Assistive Devices: Glasses Review of Systems Review of Systems: REVIEW OF SYSTEMS: Constitutional: No fever, sweats or chills Eyes: No diplopia, no worsening or blurred vision ENT: normal hearing, no trouble swallowing Respiratory: (+) cough, sputum, dyspnea at exertion, NO dyspnea on rest Cardiovascular: (+) light headedness, No chest pain, tightness or palpitations Abdomen: No pain, nausea, vomiting, diarrhea or constipation Musculoskeletal: No joint pain, calf pain, swelling Neurologic: No weakness, numbness/tingling, or balance problems Psychiatric: No anxiety or depression Skin: No rash or itch Physical Exam Physical Exam: PHYSICAL EXAM: General: awake, alert, no apparent distress Head: Normocephalic, atraumatic ENT: PERRL, EOMI, no pharyngeal exudate, mucous membranes moist Neuro: AAO x 3, speech clear and appropriate, strength intact bilaterally 5/5, sensation intact and equal all extremities and dermatomes, no pronator drift Chest: equal rise and fall of the chest, no accessory muscle use, no heaves or thrills, Clear to auscultation, on room air, Cardiac: Regular rate and rhythm, telemetry reviewed, skin warm dry, cap refill <3 seconds, peripheral pulses +2 no JVD, no murmur, no edema GI: NABS x 4 quadrants, soft, nontender to palpation, no rebound, guarding or tenderness : Spontaneously voiding, no pain, no CVA tenderness, Extremities: Normal inspection, no peripheral edema or erythema, calfs nontender to palpation Psych: Normal mood and affect Skin: no rash or erythema Results & Data Results & Data ([facility]) Vital Signs (Past 12 Hours) Vital Signs Temp Pulse Pulse Resp BP BP Pulse Ox 04/12/21 12:10 34 L 19 95 04/12/21 12:00 63 21 118/74 96 04/12/21 11:50 38 L 18 96 04/12/21 11:40 60 13 96 04/12/21 11:30 61 22 125/73 04/12/21 11:20 63 19 96 04/12/21 11:10 65 20 94 04/12/21 11:00 38 L 18 120/72 95 04/12/21 10:55 38 L 18 122/69 98 04/12/21 10:51 69 20 04/12/21 10:43 98 04/12/21 10:23 36.3 C L 53 L 18 137/75 97 Laboratory Results Abnormal lab results 04/12/21 04/12/21 04/12/21 Range/Units 10:56 10:56 10:56 MPV 11.9 H (7.4-10.4) fL D-Dimer 700 H* (0-500) ug/L FEU Chloride 109 H (98-107) mmol/L Glucose 169 H (70-99(Fasting)) mg/dl Troponin I 0.05 H* (0-0.04) ng/ml Globulin 2.3 L (2.5-4.0) gm/dl Diagnostic Findings Chest CTA 04/12/21 10:43 CT angio chest PE protocol CLINICAL HISTORY: Dyspnea TECHNIQUE: Multidetector row helical CT of the chest was performed with angiographic protocol. Coronal and sagittal reformations were obtained. Coronal and sagittal MIPS were obtained from the axial data set and were submitted for review. Automated dose lowering techniques and/or adjustment according to patient size were utilized for this exam. Comparison: None available at the time of this dictation. FINDINGS: Lungs and pleura: Atelectasis versus scarring is seen in the dependent portions of the lungs. Redemonstrated loculated fluid at the left lung base. Heart and pericardium: Heart size is normal. No pericardial effusion. Vessels: No evidence of pulmonary embolism. Mediastinum and andrea: Unremarkable. Chest wall and lower neck: Unremarkable. Abdomen: Unremarkable. Bones: Degenerative changes in the thoracic spine. IMPRESSION: No evidence of pulmonary embolism. ACT 112: Negative or not required by law. Electronically signed by: Noah Jama M.D. 04/12/2021 12:56 PM Medications Administered Discontinued Medications Aspirin (Aspirin Chew 324 Mg) 324 mg PO NOW STA Stop: 04/12/21 12:42 Last Admin: 04/12/21 12:55 Dose: 324 mg Documented by: [id number] Ioversol (Optiray 320 125ml) 119 ml IV ONCE ONE Stop: 04/12/21 12:30 Last Admin: 04/12/21 12:34 Dose: 119 ml Documented by: [id number] Additional Comments: Sinus rhythm with 2nd degree A-V block with 2:1 A-V conduction Right bundle branch block T wave abnormality, consider inferior ischemia Abnormal ECG When compared with ECG of 31-JUL-2018 09:59, Sinus rhythm is now with 2nd degree A-V block Vent. rate has decreased BY 31 BPM Right bundle branch block is now Present Code Status & VTE Plan Code Status CODE: FULL VTE: SCDS, Lovenox 40mg Sub q daily VTE Prophylaxis Plan VTE Prophylaxis will be ordered: Yes Supervising Physician Co-Signing Physician Notes Patient seen and examined, chart reviewed, case discussed with Flavio Jaimes and I agree with the assessment and plan as above except as otherwise noted General: A&Ox3. NAD. Cooperative. HEENT: Atraumatic, normocephalic. Vision/hearing grossly intact. Pulm: CTAB A&P. -wheezes, -rales, -rhonchi. Symmetrical chest rise. No increase work of breathing. No respiratory distress. Cardiac: intermittently bradycardic, -mrg. Radial pulses intact and symmetrical. Abdominal: Nontender, nondistended, soft. BS present. Ext: No edema. Moves extremities equally, grossly intact sensation in hands and feet to soft touch. All labs and images reviewed 66yo M with T2 Mobitz2 heart block. ?Past lyme exposure. Symptomatic fatigue, orthostasis. Empiric Rocephin pending lyme testing. Pt with 1* family history of 'heart problem in father in 60s' requiring pacer placement. No CP/CP. +URI symptoms in preceding week, COVID negative. Cardiology consulted for pacer evaluation. Monitor on tele. Atropine/pacing as needed, currently hemodynamically stable. PG Care Time/CCT Total # of Minutes Spent Total Time Spent with Patient: Total time spent is greater than 50% in coordination of care (as documented) at patient's floor/unit and/or counseling patient: Coding Level of Care Code 22888 Initial Inpt Care Lvl 3 Diagnoses AV heart block I44.30 Elevated troponin R77.8 BPH with obstruction/lower urinary tract symptoms N40.1; N13.8 Heterozygous factor V Leiden mutation D68.51 Elevated serum glucose R73.[address] R93.89
[2021-04-12] MEDS ORDERED: cefTRIAXone SODIUM 2,000 MG/70 ML BAG IV ONE (14:30)
[2021-04-12] MEDS ORDERED: DEXTROSE 50% 50 ML SYRINGE IV PRN (14:56)
[2021-04-12] MEDS ORDERED: GLUCOSE 10 TABS/TUBE PO PRN (14:56)
[2021-04-12] MEDS ORDERED: GLUCOSE 40% GEL 15 GM TUBE PO PRN (14:56)
[2021-04-12] MEDS ORDERED: GLUCAGON FOR INJ 1 MG VIAL SQ PRN (14:56)
[2021-04-12] MEDS ORDERED: CARBOHYDRATES FOR HYPOGLYCEMIA PO PRN (14:56)
[2021-04-12] MEDS ORDERED: ACETAMINOPHEN 325 MG TAB PO PRN (14:56)
[2021-04-12] MEDS ORDERED: ONDANSETRON INJ 2 MG/ML 2 ML VIAL IV PRN (14:56)
--- NOTE | 2021-04-12 15:03 | XCELERA ---
[id number]
--- NOTE | 2021-04-12 15:40 | Electrocardiogram Report ---
Test Reason : Blood Pressure : / mmHG Vent. Rate : 039 BPM Atrial Rate : 078 BPM P-R Int : 226 ms QRS Dur : 142 ms QT Int : 522 ms P-R-T Axes : 059 102 -37 degrees QTc Int : 420 ms Sinus rhythm with 2nd degree A-V block with 2:1 A-V conduction Right bundle branch block Abnormal ECG When compared with ECG of 31-JUL-2018 09:59, Sinus rhythm is now with 2nd degree A-V block Vent. rate has decreased BY 31 BPM Right bundle branch block is now Present Confirmed by Naveed Piña ([id number]) on 04/12/2021 3:39:41 PM Referred By: Confirmed By:Naveed Piña
--- NOTE | 2021-04-12 17:00 | Cardiology Consultation ---
Date of Consultation April 12, 2021 Assessment & Plan (1) Second degree heart block: (2) Elevated troponin: (3) Heterozygous factor V Leiden mutation: (4) Moderate mitral regurgitation: (5) Moderate tricuspid regurgitation: (6) Mild pulmonary hypertension: Generally healthy 66-year-old man presents with 2-week history of dyspnea on exertion and palpitations and was found to have second-degree heart block of uncertain etiology. He is not on any negative chronotropic medications and his Lyme titer was negative. His minimal troponin elevation could be demand ischemia from his marked bradycardia (heart rate in the 30s). However, he has experienced mild chest discomfort and the ST segments on his ECG are difficult to interpret due to the presence of right bundle branch block. Echocardiogram did not show any wall motion abnormalities to suggest acute infarct. His father required a pacemaker and the patient may simply have conduction disease, however ischemia is an alternative consideration. Would keep at bedrest overnight on telemetry monitoring and follow serial enzymes. Depending upon overnight course, will determine need/timing for permanent pacemaker as well as need/timing/mode for ischemic work-up (stress study after pacemaker versus cardiac catheterization). His valvular disease is not clinically significant at this time, but will need to be monitored long-term. History of Present Illness Reason for Consultation: Second-degree heart block Requesting Physician: Jesus Montanez MD Attending Physician: Jesus Montanez MD History of Present Illness 66-year-old man with factor V mutation/prior DVT (not on chronic anticoagulation), no cardiac history, who notes about 2 weeks of dyspnea on exertion, subjective palpitations, occasional mild chest pressure, and lightheadedness without presyncope or syncope. In the emergency department today he was noted to have a heart rate in the 30s and an ECG showing second- degree AV block with 2:1 AV conduction. Evaluation of his heart block in the ER included a negative Lyme titer, CT of the chest which was negative for pulmonary embolism but shows a chronic left lower lung fluid collection (present since 2018), troponin of 0.05, and echocardiogram which showed EF 50 to 55% with moderate MR/TR and mild pulmonary hypertension. At the time of my evaluation, he felt well but did note some very mild central chest discomfort with no other symptoms. Telemetry showed persistent bradycardia/second-degree heart block. Allergies Allergy/AdvReac Type Severity Reaction Status Date / Time alcohol Allergy Intermediate SWELLING, Verified 04/12/21 14:09 RASH lactose Allergy Intermediate INTOLERANCE Verified 04/12/21 14:09 benzyl alcohol Allergy Unknown Unknown Verified 04/12/21 14:18 No Known Drug Allergies Allergy Unknown . Verified 04/12/21 14:09 Home Medications Medication Instructions Recorded Confirmed Type cholecalciferol (vitamin D3) 50 2,000 unit PO BID 07/31/18 04/12/21 History mcg (2,000 unit) tablet (Vitamin D3) cyanocobalamin (vitamin B-12) 1,000 mcg PO QAM 09/02/18 04/12/21 History 1,000 mcg tablet (Vitamin B-12) Elderberry Zinc Vitamin C 1 tab PO BID 04/12/21 04/12/21 History dutasteride 0.5 mg capsule 0.5 mg PO QAM 04/12/21 04/12/21 History tamsulosin 0.4 mg capsule (Flomax) 0.4 mg PO HS 04/12/21 04/12/21 History Patient History Medical History Blood clotting disorder F/U PCP BPH (benign prostatic hyperplasia) BPH with obstruction/lower urinary tract symptoms Degenerative disc disease DVT (deep venous thrombosis) S/P DVT RIGHT ARM WITH SHOULDER SURGERY-DX'D WITH BLOOD CLOTTING DISORDER-WAS ON THINNERS/NOW REMOVED BY PCP History of encephalitis AT AGE 12 Surgical History History of carpal tunnel release RT History of colonoscopy History of parathyroidectomy History of repair of rotator cuff RIGHT08/2018 [facility] History of wisdom tooth extraction Family History Father Pacemaker Social History Smoking Status: Never smoker Second Hand Exposure: Yes (PARENTS SMOKED); Hx Alcohol Use: No Hx Substance Use: No Preferred Language: Spanish Communication Ability: Effective 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 Afebrile. Normotensive. Pulse 40 bpm and regular. Skin: no ecchymoses or generalized lesions. HEENT: unremarkable. Neck: no JVD or carotid bruits. Lungs: clear. Cardiac: regular/bradycardic rhythm, no obvious murmur or gallop. Abdomen: benign. Extremities: no edema, peripheral pulses intact. Neurologic: normal affect, nonfocal. Results & Data ([facility]) Laboratory Results Troponin 0.05. Normal electrolytes, BUN 15, creatinine 0.96. Normal CBC. Normal PT/PTT. Diagnostic Findings ECG on admission showed rate of 39 bpm, sinus rhythm with second-degree AV block with 2:1 AV conduction and right bundle branch block. Echocardiogram as noted in HPI. Chest CT as noted in HPI. PG Care Time/CCT Total # of Minutes Spent Total Time Spent with Patient: Total time spent is greater than 50% in coordination of care (as documented) at patient's floor/unit and/or counseling patient: Coding Level of Care Code 48240 Inpt Consult Level 4 Diagnoses Second degree heart block I44.1 Heterozygous factor V Leiden mutation D68.51 Elevated troponin R77.8 Moderate mitral regurgitation I34.0 Moderate tricuspid regurgitation I07.1 Mild pulmonary hypertension I27.20
[2021-04-12] MEDS: INSULIN ASPART PER UNIT SC SCH ×2 (17:15→20:42)
--- NOTE | 2021-04-12 19:32 | Ultrasound Report ---
US venous doppler LE RT CLINICAL HISTORY: Reported history of previous DVT in leg pain and swelling COMPARISON: None available at the time of this dictation. TECHNIQUE: Right lower extremity real-time compression venous ultrasound with Color Doppler imaging. Utilizing real-time ultrasonic imaging multiple real time high-resolution ultrasonic images with comp ression and noncompression maneuvers of the deep venous system in addition to color doppler imaging w ere performed from the common femoral vein through the proximal calf veins. FINDINGS: Currently there is normal compressibility of the deep venous system from the common femoral vein thro ugh the proximal calf veins. No current evidence of acute thrombosis is identified. Impression: No evidence of deep venous thrombus. ACT 112: Negative or not required by law. Electronically signed by: Parker Celaya M.D. 04/12/2021 7:30 PM
[2021-04-12] MEDS: ENOXAPARIN INJ 40 MG/0.4 ML SYR SQ SCH (20:39)
[2021-04-12] MEDS: CHOLECALCIFEROL 1,000 UNITS 25 MCG TAB PO SCH (20:42)
[2021-04-12] MEDS: TAMSULOSIN HCL 0.4 MG CAP PO SCH (20:43)
[2021-04-13] MEDS: CHOLECALCIFEROL 1,000 UNITS 25 MCG TAB PO SCH ×2 (07:25→20:50)
[2021-04-13] MEDS: DUTASTERIDE PO SCH (07:26)
--- NOTE | 2021-04-13 08:41 | Electrocardiogram Report ---
Test Reason : Blood Pressure : / mmHG Vent. Rate : 059 BPM Atrial Rate : 059 BPM P-R Int : 206 ms QRS Dur : 150 ms QT Int : 520 ms P-R-T Axes : 056 106 -45 degrees QTc Int : 514 ms Sinus bradycardia with 1st degree A-V block Rightward axis Non-specific intra-ventricular conduction block Abnormal ECG When compared with ECG of 12-APR-2021 10:48, Sinus rhythm is no longer with 2nd degree A-V block Vent. rate has increased BY 20 BPM Confirmed by Naveed Piña ([id number]) on 04/13/2021 8:41:28 AM Referred By: REFERRED SELF Confirmed By:Naveed Piña
[2021-04-13] MEDS: INSULIN ASPART PER UNIT SC SCH ×4 (08:59→20:51)
[2021-04-13] MEDS ORDERED: TAMSULOSIN HCL 0.4 MG CAP PO SCH (09:00)
--- NOTE | 2021-04-13 11:37 | Hospitalist Progress Note ---
Date of Service April 13, 2021 Assessment & Plan (1) AV heart block: Plan: Second degree type II with return back to NSR when HR is in the 60s- asymptomatic - P-P and R-R intervals are regular throughout--continue cardiac monitoring - Bp with MAPS >70 and SBP>140 - Lyme titer ordered and covered with Rocephin until back, it was neg subsequently rocephin stopped - ESR and CRP negative - Echo obtained and results as outlined above - Trop trended with essentially no change - Cardiology consulted, appreciate recommendations, for PPM insertion on 04/14 - NPO after MN (2) Elevated troponin: Plan: Likely represents demand ischemia - Trended and peaked at 0.06 - EST in 2006 that was normal - ECHO as above (3) Chest discomfort: Plan: - Uncertain if this is related to coronary artery disease vs symptoms d/t #1 - Troponin trended as above, echo as above - Cardiology recommending PPM first, followed by nuclear stress test - ?trial of nitro (either SL and topical) to determine response (4) BPH with obstruction/lower urinary tract symptoms: Plan: - Continue tamsulosin (5) Heterozygous factor V Leiden mutation: Plan: With history of Right upper extremity DVT - D-dimer elevated even with age adjusted- CTA of chest negative for PE - Wells 1-b/l venous dopplers were obtained and negative for DVT - Doesn't appear to be on any chronic ACT (6) Elevated serum glucose: Plan: Elevated random glucose without the diagnosis of DM - Carb consistent diet - AC/HS glucose checks with coverage if >180 (7) Abnormal chest CT: Plan: Loculated cystic left lower lobe collection with stable measurements since 2018 - most likely pseudotumor as this is loculated in the pulmonary fissure - Asymptomatic and without evidence of overt heart failure as well - Follow with PCP Plan: Plan as outlined above NPO after MN for PPM insertion tomorrow Will consider adding topical nitropaste v dose of SL nitro and monitor response re: cp Follow up labs in AM Admission and Anticipated Discharge Date Admission Date: April 12, 2021 Subjective Patient seen on daily rounds this morning. He reports ongoing mild substernal chest pressure that he rates 1-2/10. Denies radiation or associated dyspnea at rest. Denies lightheadedness/dizziness. He was hospitalized d/t mobitz type II AV block. He is for PPM insertion tomorrow w/ Dr. Lynne. Review of Systems Review of Systems: REVIEW OF SYSTEMS: Constitutional: No fever, sweats or chills Eyes: No diplopia, no worsening or blurred vision ENT: normal hearing, no trouble swallowing Respiratory: No dyspnea at rest Cardiovascular: +chest pressure. No palpitations Abdomen: No pain, nausea, vomiting, diarrhea or constipation Musculoskeletal: No joint pain, calf pain, swelling Neurologic: No weakness, numbness/tingling, or balance problems Psychiatric: No anxiety or depression Skin: No rash or itch Physical Exam Physical Exam: GENERAL: 66 yo well-developed, well-nourished WM. NAD. LUNGS: Clear to auscultation bilaterally. No accessory muscle use. No W/R/R. CARDIOVASCULAR: Regular rate and rhythm. No M/G/R. No JVD. ABDOMEN: Soft, non-tender and non-distended. BS normal x 4 quad. EXTREMITIES: No edema. Non-tender. Peripheral pulses +2/4. NEUROLOGIC: A&O x3. PSYCHIATRIC: Cooperative. Appropriate mood and affect. SKIN: Warm, dry, intact. No rashes or lesions. Results & Data Results & Data ([facility]) Vital Signs (Past 12 Hours) Vital Signs Temp Pulse Pulse Resp BP Pulse Ox 04/13/21 11:25 36.5 C 61 18 138/88 95 04/13/21 08:12 36.5 C 42 L 19 145/86 H 96 04/13/21 07:13 60 04/13/21 02:58 36.5 C 39 L 18 111/65 96 Laboratory Results Lyme titer=negative Trop=0.05-0.06-0.05 Diagnostic Findings Echocardiogram: 04/12/21 (No prior study for comparison) The left ventricle is normal in size. Left ventricular systolic function is low normal (EF 50-55%) The left ventricular wall motion is normal The right ventricle is mildly dilated. The right ventricular systolic function is normal. There is moderate mitral regurgitation. The left atrium is moderately dilated. There is moderate TR. Right ventricular systolic pressure is elevated at 30-40 mmHg The inferior vena cava is mildly dilated. There is no pericardial effusion. PG Care Time/CCT Total # of Minutes Spent Total Time Spent with Patient: Total time spent is greater than 50% in coordination of care (as documented) at patient's floor/unit and/or counseling patient: Coding Level of Care Code 54186 Subseq Hosp Care Lvl 2 Diagnoses AV heart block I44.30 Elevated troponin R77.8 BPH with obstruction/lower urinary tract symptoms N40.1; N13.8 Heterozygous factor V Leiden mutation D68.51 Elevated serum glucose R73.[address] R93.89 Chest discomfort R07.89
--- NOTE | 2021-04-13 11:40 | Cardiology Progress Note ---
Date of Service April 13, 2021 Assessment & Plan (1) Second degree heart block: (2) Elevated troponin: (3) Chest discomfort: Plan: 1. Second-degree AV block: Based on his conduction pattern which is predominantly a left posterior fascicular block with an IVCD he likely has infra his conduction block. The finding of one-to-one conduction at lower sinus rates in 2-1 at higher sinus rates with no evidence of MT prolongation is consistent with this. There appears to be no reversible cause and he should have a pacemaker. I discussed the indications, procedure, risks and alternatives of pacemaker implantation with him and he understands and agrees to proceed. We will plan on doing this tomorrow morning. He could potentially go home late in the day tomorrow or be kept overnight. 2. Elevated troponin: His troponins are unchanged and minimally elevated, this does not indicate an acute ischemic event. 3. Chest discomfort: He does describe a vague chest discomfort which seems to correlate with his periods of 2-1 AV block. It is possible he has underlying coronary artery disease however catheterization before pacemaker implantation is not necessary and could be problematic if he needs intervention. I would prefer to implant the pacemaker first and then we can consider stress testing, that would require a nuclear stress test as he will have a paced rhythm. Admission and Anticipated Discharge Date Admission Date: April 12, 2021 Subjective Chart reviewed and patient examined. He has had several weeks of decreased exercise ability and palpitations. He notes that he feels well when he first wakes up in the morning and then begins to have an unsettled feeling in his chest, that is present most of the time during the day. That has continued (and probably represents his AV block). He has not had lightheadedness, dizziness or presyncope. His symptoms really have not changed since presentation. Physical Exam Physical Exam: Constitutional: Alert, cooperative and in no distress. HEENT: Unremarkable Neck: No jugular venous distention, carotid pulses are normal and equal bilaterally without bruits. Pulmonary: Clear to auscultation bilaterally. Cardiac: Regular slow rhythm with no murmur, gallop or rub. Abdomen: Soft, nontender with normal bowel sounds. Extremities: No edema. Distal pulses intact. Neurologic: No focal findings. Gait is steady. Skin: No rash, ecchymoses or petechiae. Results & Data ([facility]) Vital Signs (Past 12 Hours) Vital Signs Temp Pulse Pulse Resp BP Pulse Ox 04/13/21 11:25 36.5 C 61 18 138/88 95 04/13/21 08:12 36.5 C 42 L 19 145/86 H 96 04/13/21 07:13 60 04/13/21 02:58 36.5 C 39 L 18 111/65 96 Laboratory Results Cardiac Enzymes 04/12/21 04/12/21 04/12/21 Range/Units 10:56 17:09 22:27 AST 27 (13-39) U/L Troponin I 0.05 H* 0.05 H* 0.06 H* (0-0.04) ng/ml 04/13/21 Range/Units 06:31 AST (13-39) U/L Troponin I 0.05 H* (0-0.04) ng/ml Comprehensive Metabolic Panel 04/12/21 Range/Units 10:56 Sodium 141 (136-145) mmol/L Potassium 4.0 (3.5-5.1) mmol/L Chloride 109 H (98-107) mmol/L Carbon Dioxide 26 (21-32) mmol/L BUN 15 (6-23) mg/dl Creatinine 0.96 (0.6-1.4) mg/dl Glucose 169 H (70-99(Fasting)) mg/dl Calcium 9.4 (8.5-10.1) mg/dl AST 27 (13-39) U/L ALT 45 (7-52) U/L Alkaline Phosphatase 47 (34-104) U/L Total Protein 6.6 (6.0-8.3) gm/dl Albumin 4.3 (3.4-5.0) gm/dl Intake and Output 04/12/21 04/13/21 04/13/21 22:59 06:59 14:59 Intake Total 270 / 270 Output Total 400 / 700 300 / 700 275 / 275 Balance -130 / -430 -300 / -430 -275 / -275 Intake: IV 70 / 70 cefTRIAXone SODIUM 2,000 mg In 70 / 70 70 ml @ 140 mls/hr IV NOW ONE Rx#:[id number] Oral 200 / 200 Output: Urine 400 / 700 300 / 700 275 / 275 Other: Other Intake Source NPO Weight 100.6 kg Weight Measurement Method Built in [facility] Diagnostic Findings Telemetry: One-to-one AV conduction at lower sinus rates, 2-1 AV conduction at higher heart rates. No significant ventricular ectopy. PG Care Time/CCT Total # of Minutes Spent Total Time Spent with Patient: Total time spent is greater than 50% in coordination of care (as documented) at patient's floor/unit and/or counseling patient: Coding Level of Care Code 78415 Subseq Hosp Care Lvl 3 Diagnoses Second degree heart block I44.1 Elevated troponin R77.8 Chest discomfort R07.89
[2021-04-13] MEDS ORDERED: cefTRIAXone SODIUM 2,000 MG in DEXTROSE 5% 50 ML IV SCH (14:00)
[2021-04-13] MEDS: TAMSULOSIN HCL 0.4 MG CAP PO SCH (17:57)
[2021-04-13] MEDS: ENOXAPARIN INJ 40 MG/0.4 ML SYR SQ SCH (21:40)
[2021-04-14] MEDS ORDERED: ceFAZolin 2000MG 2,000 MG/15 ML SYR IV SCH (06:00)
[2021-04-14] MEDS ORDERED: MIDAZOLAM HCL 5 MG/ML 1 ML VIAL ONE (06:56)
[2021-04-14] MEDS ORDERED: WATER, STERILE FOR INJ 10 ML VIAL ONE (06:56)
[2021-04-14] MEDS ORDERED: LIDOCAINE 1% LOCAL 20 ML VIAL ONE (06:56)
[2021-04-14] MEDS ORDERED: fentaNYL citrate 100 MCG/2 ML VIAL ONE (06:56)
[2021-04-14] MEDS ORDERED: BACITRACIN OINT 0.9 GM PKT ONE (06:56)
[2021-04-14] MEDS ORDERED: VANCOMYCIN HCL 1000MG/20ML VIAL ONE (06:57)
[2021-04-14] MEDS ORDERED: ceFAZolin 330 MG/ML 1 GM VIAL ONE (06:57)
[2021-04-14] MEDS: INSULIN ASPART PER UNIT SC SCH ×4 (07:34→20:43)
--- NOTE | 2021-04-14 08:57 | History & Physical Bridge Note ---
Date of Service April 14, 2021 History & Physical Bridge Note I have examined the patient, reviewed the History & Physical and in the interval since the performance of the History & Physical I have noted the following changes of clinical significance: no changes noted.
--- NOTE | 2021-04-14 08:58 | Pre Anesthesia Assessment ---
Date of Service April 14, 2021 Pre Sedation Assessment Vital Signs Temp Pulse Pulse Resp BP BP Pulse Ox 04/14/21 08:01 52 L 04/14/21 07:40 36.7 C 51 L 20 151/88 H 96 04/14/21 03:27 36.5 C 61 18 142/89 H 95 04/13/21 23:30 36.7 C 39 L 16 122/66 93 04/13/21 22:19 34 L 04/13/21 19:50 36.5 C 43 L 20 121/75 95 04/13/21 15:31 36.6 C 61 18 135/87 97 04/13/21 15:22 64 04/13/21 11:25 36.5 C 61 18 138/88 95 Cardiovascular + regular rate and + bradycardic Respiratory normal respiratory effort, lungs clear to auscultation Pre-Sedation Airway Assessment Smoking Status: Never smoker Short, Thick Neck: No Thyromental Distance: > or= 3.5 Finger Breadths Oral Cavity: + WNL Mallampati Class: III ASA: ASA3 NPO Status Date of Last Intake of Fluids: 04/13/21 Time of Last Intake of Fluids: 20:00 Date of Last Intake of Solid Food: 04/13/21 Time of Last Intake of Solid Foods: 20:00 Procedure Planning Contraindications for Sedation: none Current Medications Reviewed: Yes Notes The planned sedation has been discussed with the patient. Informed Consent was obtained. I have identified the patient, determined the appropriateness of sedation and have assessed the patient immediately prior to the procedure. All medicine(s) and interventions are by my order.
--- NOTE | 2021-04-14 09:15 | Electrocardiogram Report ---
Test Reason : Blood Pressure : / mmHG Vent. Rate : 059 BPM Atrial Rate : 059 BPM P-R Int : 250 ms QRS Dur : 142 ms QT Int : 560 ms P-R-T Axes : 053 105 -38 degrees QTc Int : 554 ms Sinus bradycardia with 1st degree A-V block Non-specific intra-ventricular conduction block Nonspecific T wave abnormality Inferior leads Abnormal ECG When compared with ECG of 13-APR-2021 06:28, No significant change was found Confirmed by Naveed Piña ([id number]) on 04/14/2021 9:14:48 AM Referred By: REFERRED SELF Confirmed By:Naveed Piña
[2021-04-14] MEDS: ceFAZolin 330 MG/ML 1 GM VIAL IV SCH (09:54)
[2021-04-14] MEDS: LACTATED RINGER'S 1,000 ML IV SCH (09:55)
[2021-04-14] MEDS ORDERED: ACETAMINOPHEN W/CODEINE #3 1 TAB PO PRN (10:40)
[2021-04-14] MEDS ORDERED: ACETAMINOPHEN 325 MG TAB PO PRN (10:40)
--- NOTE | 2021-04-14 10:40 | Electrophysiology Report ---
Date of Service April 14, 2021 Electrophysiology Procedure Electrophysiology Procedure Report Preoperative diagnosis: AV block Postoperative diagnosis: Same Procedure: Left subclavian venogram Dual-chamber left bundle branch pacemaker implantation Surgeon: Ronni Lynne MD Estimated blood loss: 20 cc Complications: None Disposition: Stunner Animal recovery Procedure details: After obtaining informed consent for the procedure, the patient was brought to the laboratory and prepped and draped in the standard sterile manner. Dye was injected the left arm IV site to opacify the left subclavian vein. The subclavian vein was identified and found to be free of obstruction. The left prepectoral region was anesthetized with 1% lidocaine local anesthetic and left axillary venipuncture was performed by percutaneous technique and a guidewire placed through the left subclavian vein into the superior vena cava. The area was further infiltrated with 1% lidocaine local anesthetic and a 5 cm incision was made parallel to the left clavicle and 2 cm below it and carried down to the anterior pectoralis fascia. A pacemaker pocket was formed by blunt dissection anterior to the pectoralis fascia and a vancomycin-soaked sponge was placed in the pocket. An 8 [place] Medtronic lead introducer was placed over the guidewire into the left subclavian vein, the dilator and guidewire were removed and a bipolar active fixation steroid tipped atrial lead was advanced through the introducer into the superior vena cava. A guidewire was placed through the introducer and the introducer was stripped from the lead and guidewire. A 7 [place] Medtronic lead introducer was placed over the guidewire into the left subclavian vein, the dilator and guidewire were removed. The atrial lead was temporarily positioned in the right ventricle for backup pacing. A C315 His 02 septal sheath was advanced through the introducer over a guidewire and advanced into the right ventricular outflow tract. The guidewire and dilator were removed and the sheath was positioned in a mid septal location. A bipolar active fixation steroid tipped ventricular lead was advanced through the introducer and rotated to advance the screw into the septum. Septal penetration was confirmed by dye injection through the sheath. Pacing and sensing thresholds were evaluated in bipolar configuration and are noted on the data sheet. The septal sheath was stripped away from the lead. A guidewire was placed back through the introducer and the introducer was removed over the the guidewire. The atrial lead was then removed from the right ventricle and using a curved stylette the atrial lead was positioned in the region of the atrial appendage and the screw extended fixing the lead in position. Pacing and sensing thresholds were evaluated in bipolar configuration and are recorded on the plant data sheet. Once the leads were in position they were attached to the anterior pectoralis fascia using 2 sutures of 2-0 silk around each lead collar. The vancomycin soaked sponge was removed from the pocket, hemostasis was obtained, the pacemaker was attached to the leads and placed in the pocket with the leads coiled beneath it. The incision was closed with a running double subcutaneous cl osure of 3-0 Vicryl absorbable suture, followed by running subcuticular skin closure of 4-0 Vicryl absorbable suture. Bacitracin ointment was placed on the incision and a dressing applied. [facility] Electrophysiology codes Indication for Procedure (1) AV heart block: Pacing Procedure 1: Pacin Insert/Replace Pacer A & V Miscellaneous Procedures Procedure 1: EP Miscellaneous: 49130 Contrast injection for venography Procedure 2: EP Miscellaneous: 11767-58 Vengraphy, extremity PG Moderate Sedation Codes Moderate Sedation Codes Procedure 1: Sedation/Anesthesia: 61618 Mod Sedation by the same physician;Init15 Min Child Age 5 & Up Procedure 2: Sedation/Anesthesia: 67972 Mod Sedation by the same physician; Ea [id number] Minutes
--- NOTE | 2021-04-14 11:02 | Post Anesthesia Assessment ---
Date of Service April 14, 2021 Post Sedation Assessment Vital Signs Temp Pulse Pulse Resp BP BP Pulse Ox 04/14/21 10:34 60 18 147/97 H 96 04/14/21 10:24 62 18 161/112 H 96 04/14/21 08:01 52 L 04/14/21 07:40 36.7 C 51 L 20 151/88 H 96 04/14/21 03:27 36.5 C 61 18 142/89 H 95 04/13/21 23:30 36.7 C 39 L 16 122/66 93 04/13/21 22:19 34 L 04/13/21 19:50 36.5 C 43 L 20 121/75 95 04/13/21 15:31 36.6 C 61 18 135/87 97 04/13/21 15:22 64 04/13/21 11:25 36.5 C 61 18 138/88 95 Recovery Score Activity: Moves 4 extremities Respiration: Deep Breath/Cough Circulation: +/-20% PreAnes Value Consciousness: Fully Awake Oxygen Saturation: > 92% On Room Air Post Anesthesia Score: 10 Discharge Sedation Level of Care: Fast Track Phase II Post Sedation Plan On clinical assessment, the patient appears to have tolerated the sedation without complications. Patient is recovering as anticipated. Patient will continue to be monitored by nursing and may be discharged when sedation discharge criteria are met per below protocol. Upon Completions of procedure up to 15 minutes continue every 5 minute vital signs and the P.A.R. score; then discharge to a Phase I or Fast Track to Phase II per the following guidelines: * Discharge Patient to appropriate Phase II area if PAR is 8 or greater or return to pre- procedure baseline. The post - procedure orders will be as directed. * If PAR score is less than 8 or not return to pre-procedure baseline then patient will follow Phase I monitoring till PAR is reached for Phase II. The Phase I may be done in procedure room or may call to secure a Phase I area. * If naloxone or flumazenil are used for reversal, hold in Phase I for continued monitoring from when last reversal dose was given for a minimum of 60 minutes or longer pending the nurse and/or physician discretion of patient condition before discharge to Phase II. Please call the Sedation Physician to re-evaluate and complete post-note for discharge to Phase II area. Do NOT discharge from procedure sedation or Phase 1 until post- sedation evaluation note is complete by procedure /sedation MD Sedation Discharge Instructions to be given to the patient at discharge to home.
[2021-04-14] MEDS: CHOLECALCIFEROL 1,000 UNITS 25 MCG TAB PO SCH ×2 (11:22→20:39)
[2021-04-14] MEDS: DUTASTERIDE PO SCH (11:22)
--- NOTE | 2021-04-14 13:38 | Electrocardiogram Report ---
Test Reason : Blood Pressure : / mmHG Vent. Rate : 062 BPM Atrial Rate : 062 BPM P-R Int : 208 ms QRS Dur : 140 ms QT Int : 492 ms P-R-T Axes : 047 099 -22 degrees QTc Int : 499 ms Atrial-sensed ventricular-paced rhythm Abnormal ECG When compared with ECG of 14-APR-2021 11:55, No significant change was found Confirmed by Naveed Piña ([id number]) on 04/14/2021 1:38:11 PM Referred By: REFERRED SELF Confirmed By:Naveed Piña
--- NOTE | 2021-04-14 13:40 | Electrocardiogram Report ---
Test Reason : Blood Pressure : / mmHG Vent. Rate : 061 BPM Atrial Rate : 061 BPM P-R Int : 206 ms QRS Dur : 138 ms QT Int : 492 ms P-R-T Axes : 007 100 -14 degrees QTc Int : 495 ms AV dual-paced rhythm with occasional Premature atrial complexes Abnormal ECG When compared with ECG of 14-APR-2021 04:50, Electronic ventricular pacemaker has replaced Sinus rhythm Confirmed by Naveed Piña ([id number]) on 04/14/2021 1:40:28 PM Referred By: REFERRED SELF Confirmed By:Naveed Piña
--- NOTE | 2021-04-14 13:41 | Hospitalist Progress Note ---
Date of Service April 14, 2021 Assessment & Plan (1) AV heart block: Plan: Second degree type II with return back to NSR when HR is in the 60s- asymptomatic - P-P and R-R intervals are regular throughout--continue cardiac monitoring - Bp with MAPS >70 and SBP>140 - Lyme titer ordered and covered with Rocephin until back, it was neg subsequently rocephin stopped - ESR and CRP negative - Echo obtained--no wma, lvef 50-55%, moderate TR, moderate MR, rvsp elevated at 30-40mmhg - Trop trended with essentially no change - Cardiology consulted, appreciate recommendations, s/p ppm insertion 04/14 (2) Elevated troponin: Plan: Likely represents myocardial demand ischemia - Trended and peaked at 0.06 - EST in 2006 that was normal - ECHO as above (3) Chest discomfort: Plan: - Uncertain if this is related to coronary artery disease vs symptoms d/t #1 - Troponin trended as above, echo as above - Cardiology recommending PPM first, followed by nuclear stress test - nuclear stress test to be done tomorrow, today pt is cp free (4) BPH with obstruction/lower urinary tract symptoms: Plan: - Continue tamsulosin (5) Heterozygous factor V Leiden mutation: Plan: With history of Right upper extremity DVT - D-dimer elevated even with age adjusted- CTA of chest negative for PE - [place] 1-b/l venous dopplers were obtained and negative for DVT - Doesn't appear to be on any chronic ACT (6) Elevated serum glucose: Plan: Elevated random glucose without the diagnosis of DM - Carb consistent diet - AC/HS glucose checks with coverage if >180 (7) Abnormal chest CT: Plan: Loculated cystic left lower lobe collection with stable measurements since 2018 - 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 He was hospitalized d/t mobitz type II AV block. He underwent PPM insertion this morning by Dr. Lynne. Tolerated procedure well, no immediate complications. Currently resting in bed, denies cp, dyspnea, palpitations, lightheadedness/dizziness. Review of Systems Review of Systems: REVIEW OF SYSTEMS: Constitutional: No fever, sweats or chills Eyes: No diplopia, no worsening or blurred vision ENT: normal hearing, no trouble swallowing Respiratory: No dyspnea at rest Cardiovascular: +chest pressure. No palpitations Abdomen: No pain, nausea, vomiting, diarrhea or constipation Musculoskeletal: No joint pain, calf pain, swelling Neurologic: No weakness, numbness/tingling, or balance problems Psychiatric: No anxiety or depression Skin: No rash or itch Physical Exam Physical Exam: GENERAL: 66 yo well-developed, well-nourished WM. NAD. LUNGS: Clear to auscultation bilaterally. No accessory muscle use. No W/R/R. CARDIOVASCULAR: Regular rate and rhythm. No M/G/R. No JVD. ABDOMEN: Soft, non-tender and non-distended. BS normal x 4 quad. EXTREMITIES: No edema. Non-tender. Peripheral pulses +2/4. NEUROLOGIC: A&O x3. PSYCHIATRIC: Cooperative. Appropriate mood and affect. SKIN: Warm, dry, intact. No rashes or lesions. Results & Data Results & Data ([facility]) Vital Signs (Past 12 Hours) Vital Signs Temp Pulse Pulse Resp BP Pulse Ox 04/14/21 11:55 60 16 138/87 96 04/14/21 11:25 60 16 148/94 H 04/14/21 11:10 60 16 153/91 H 96 04/14/21 10:55 60 15 155/100 H 95 04/14/21 10:40 36.8 C 60 16 153/95 H 95 04/14/21 10:34 60 18 147/97 H 96 04/14/21 10:24 62 18 161/112 H 96 04/14/21 08:01 52 L 04/14/21 07:40 36.7 C 51 L 20 151/88 H 96 04/14/21 03:27 36.5 C 61 18 142/89 H 95 Laboratory Results no labs drawn this am PG Care Time/CCT Total # of Minutes Spent Total Time Spent with Patient: Total time spent is greater than 50% in coordination of care (as documented) at patient's floor/unit and/or counseling patient: Coding Level of Care Code 14492 Subseq Hosp Care Lvl 2 Diagnoses AV heart block I44.30 Elevated troponin R77.8 Chest discomfort R07.89 BPH with obstruction/lower urinary tract symptoms N40.1; N13.8 Heterozygous factor V Leiden mutation D68.51 Elevated serum glucose R73.[address] R93.89
[2021-04-14] MEDS: TAMSULOSIN HCL 0.4 MG CAP PO SCH (18:06)
[2021-04-14] MEDS ORDERED: MELATONIN 3 MG TAB PO PRN (20:25)
[2021-04-14] MEDS: ENOXAPARIN INJ 40 MG/0.4 ML SYR SQ SCH (20:39)
[2021-04-15] MEDS: ceFAZolin 330 MG/ML 1 GM VIAL IV SCH (06:35)
[2021-04-15] MEDS: LACTATED RINGER'S 1,000 ML IV SCH (06:37)
[2021-04-15 07:25] LABS: Basophils # (auto) 0.01 K/uL (0-0.2); Basophils % (auto) 0.1 %; Eosinophils # (auto) 0.08 K/uL (0-0.5); Eosinophils % (auto) 1.1 %; Hemoglobin 16.3 g/dL (14.0-18.0); Immature Granulocytes # (auto) 0.01 K/uL (0.00-0.02); Immature Granulocytes % (auto) 0.1 %; Lymphocytes # (auto) 1.44 K/uL (1.2-3.4); Lymphocytes % (auto) 20.5 %; Mean Corpuscular Volume 88.4 fL (80-100); Mean Platelet Volume 11.7 fL (7.4-10.4); Monocytes # (auto) 0.55 K/uL (0.11-0.59); Monocytes % (auto) 7.8 %; Neutrophils # (auto) 4.92 K/uL (1.4-6.5); Neutrophils % (auto) 70.4 %; Platelet Count 169 K/uL (130-400); RDW Standard Deviation 45.3 fL (36.4-46.3); Red Blood Count 5.43 M/uL (4.7-6.1); White Blood Count 7.01 K/uL (4.8-10.8)
[2021-04-15] MEDS: INSULIN ASPART PER UNIT SC SCH ×2 (07:30→11:48)
[2021-04-15 08:04] LABS: BUN Creatinine Ratio 17.6 (10-20); Calcium 8.4 mg/dl (8.5-10.1); Creatinine Clr Calc Pharmacy 90.1 ml/min; Est GFR (African American) 101.4 ml/min; Est GFR (Non-African American) 87.5 ml/min; Magnesium 2.1 mg/dl (1.7-2.4)
[2021-04-15] MEDS ORDERED: REGADENOSON 0.4 MG/5 ML SYR IV ONE (08:48)
--- NOTE | 2021-04-15 08:56 | XRay Report ---
XR chest 2V PA/lateral HISTORY: Status post left-sided pacemaker placement. EXACT TIME ORDERED Evaluate for pneumothorax an d l COMPARISON: Chest 04/22/2017. FINDINGS: There is left-sided dual-chamber pacemaker. The leads appear intact. No pneumothorax. The h eart is top normal in size. No evidence for pulmonary edema. Trace bilateral pleural effusions. A few bibasilar linear densities favor subsegmental atelectasis. Otherwise, no focal lung consolidations t o suggest pneumonia. IMPRESSION: 1. Left-sided dual-chamber pacemaker. No pneumothorax. 2. Trace bilateral pleural effusions. ACT 112: Negative or not required by law. Electronically signed by: Cheikh Owusu M.D. 04/15/2021 8:55 AM
[2021-04-15] MEDS: CHOLECALCIFEROL 1,000 UNITS 25 MCG TAB PO SCH (10:41)
[2021-04-15] MEDS: DUTASTERIDE PO SCH (10:41)
--- NOTE | 2021-04-15 12:49 | Discharge Summary ---
Date of Service April 15, 2021 Admission HPI Per Admitting Provider 66 YOM with past medical history of: BPH, carpal tunnel, hyperparathyroidism, renal cyst, pulmonary cystic fluid collection, Factor V gene mutation and upper extremity DVT. Patient comes to the [facility] today for complaints of dizziness. On his evaluation, he was noted to have second degree type II heart block with HR in the 30-60s as well as elevated D-dimer. Patient states that about 2 weeks ago he had a period of fatigue, chest congestion, mild arthralgias, and a cough. He did not get any testing done at that time. Very close to that onset, he started noticing that he would get dizzy upon standing up as well as dyspnea when going up stairs or doing anything strenuous. He has not noticed his HR being slow but has at times noticed his HR going fast. The patient denies any chest pain, n/v, back or shoulder pain. His dizziness occurs from sitting to standing only and lasts 10-15 seconds and goes away, this is not associated with any sweating feeling, flashings of light, blurry vision, or room spinning. His labs are notable for Troponin I of 0.05 and D- dimer of 700. CTA of the chest was performed which is negative for PE, but continues to note left lower lung loculated fluid collection- remains same size and location since 2018. He does not endorse any leg pain or leg swelling. His previous VTE was in his right upper extremity following rotator cuff surgery. 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 Cardiology was consulted by the [facility] physician. Lyme titer was sent. Will empirically place on Rocephin while this is pending. Continue cardiology consult and follow him on PCU. ECHO pending on admission. Father has history of requiring pacemaker in his 70s- he is unsure of why COVID test on admission is: NEGATIVE Principal Diagnosis Secondary degree type II heart block s/p PPM insertion Discharge Exam GENERAL: 66 yo well-developed, well-nourished WM. NAD. LUNGS: Clear to auscultation bilaterally. No accessory muscle use. No W/R/R. CARDIOVASCULAR: Regular rate and rhythm. No M/G/R. No JVD. ABDOMEN: Soft, non-tender and non-distended. BS normal x 4 quad. EXTREMITIES: No edema. Non-tender. Peripheral pulses +2/4. L arm in sling. NEUROLOGIC: A&O x3. PSYCHIATRIC: Cooperative. Appropriate mood and affect. SKIN: Warm, dry, intact. No rashes or lesions. Incision over L chest dressed (from PPM insertion) Discharge Data Allergies Allergy/AdvReac Type Severity Reaction Status Date / Time alcohol Allergy Intermediate SWELLING, Verified 04/12/21 14:09 RASH lactose Allergy Intermediate INTOLERANCE Verified 04/12/21 14:09 benzyl alcohol Allergy Unknown Unknown Verified 04/12/21 14:18 No Known Drug Allergies Allergy Unknown . Verified 04/12/21 14:09 Consultations 04/12/21 12:45 ED Decision to Admit Stat 04/12/21 14:56 Consult Cardiology Routine Procedures Performed Operation Date: 04/14/21 09:00 Actual Procedures p Pacer with A/V Leads (Dual) - Ronni Lynne MD Ordered Studies Chest CTA 04/12/21 10:43 CT angio chest PE protocol CLINICAL HISTORY: Dyspnea TECHNIQUE: Multidetector row helical CT of the chest was performed with angiographic protocol. Coronal and sagittal reformations were obtained. Coronal and sagittal MIPS were obtained from the axial data set and were submitted for review. Automated dose lowering techniques and/or adjustment according to patient size were utilized for this exam. Comparison: None available at the time of this dictation. FINDINGS: Lungs and pleura: Atelectasis versus scarring is seen in the dependent portions of the lungs. Redemonstrated loculated fluid at the left lung base. Heart and pericardium: Heart size is normal. No pericardial effusion. Vessels: No evidence of pulmonary embolism. Mediastinum and andrea: Unremarkable. Chest wall and lower neck: Unremarkable. Abdomen: Unremarkable. Bones: Degenerative changes in the thoracic spine. IMPRESSION: No evidence of pulmonary embolism. ACT 112: Negative or not required by law. Electronically signed by: Noah Jama M.D. 04/12/2021 12:56 PM Venous Doppler Study 04/12/21 13:26 US venous doppler LE RT CLINICAL HISTORY: Reported history of previous DVT in leg pain and swelling COMPARISON: None available at the time of this dictation. TECHNIQUE: Right lower extremity real-time compression venous ultrasound with Color Doppler imaging. Utilizing real-time ultrasonic imaging multiple real time high-resolution ultrasonic images with compression and noncompression maneuvers of the deep venous system in addition to color doppler imaging were performed from the common femoral vein through the proximal calf veins. FINDINGS: Currently there is normal compressibility of the deep venous system from the common femoral vein through the proximal calf veins. No current evidence of acute thrombosis is identified. Impression: No evidence of deep venous thrombus. ACT 112: Negative or not required by law. Electronically signed by: Parker Celaya M.D. 04/12/2021 7:30 PM Chest X-Ray 04/15/21 07:00 XR chest 2V PA/lateral HISTORY: Status post left-sided pacemaker placement. EXACT TIME ORDERED Evaluate for pneumothorax and l COMPARISON: Chest 04/22/2017. FINDINGS: There is left-sided dual-chamber pacemaker. The leads appear intact. No pneumothorax. The heart is top normal in size. No evidence for pulmonary edema. Trace bilateral pleural effusions. A few bibasilar linear densities favor subsegmental atelectasis. Otherwise, no focal lung consolidations to suggest pneumonia. IMPRESSION: 1. Left-sided dual-chamber pacemaker. No pneumothorax. 2. Trace bilateral pleural effusions. ACT 112: Negative or not required by law. Electronically signed by: Cheikh Owusu M.D. 04/15/2021 8:55 AM Echocardiogram: 04/12/21 (No prior study for comparison) The left ventricle is normal in size. Left ventricular systolic function is low normal (EF 50-55%) The left ventricular wall motion is normal The right ventricle is mildly dilated. The right ventricular systolic function is normal. There is moderate mitral regurgitation. The left atrium is moderately dilated. There is moderate TR. Right ventricular systolic pressure is elevated at 30-40 mmHg The inferior vena cava is mildly dilated. There is no pericardial effusion. Lyme titer=negative Trop=0.05-0.06-0.05 Hospital Course (1) AV heart block: Second degree type II with return back to NSR when HR is in the 60s- asymptomatic - P-P and R-R intervals are regular throughout--continue cardiac monitoring - Bp with MAPS >70 and SBP>140 - Lyme titer ordered and covered with Rocephin until back, it was neg subsequently rocephin stopped - ESR and CRP negative - Echo obtained--no wma, lvef 50-55%, moderate TR, moderate MR, rvsp elevated at 30-40mmhg - Trop trended with essentially no change - Cardiology consulted, appreciate recommendations, s/p ppm insertion 04/14 (2) Elevated troponin: Likely represents myocardial demand ischemia - Trended and peaked at 0.06 - EST in 2006 that was normal - ECHO as above (3) Chest discomfort: - Uncertain if this is related to coronary artery disease vs symptoms d/t #1 - Troponin trended as above, echo as above - Cardiology recommending PPM first, followed by nuclear stress test - nuclear stress test completed this morning which was WNL, read by Dr. Piña - Today is chest pain free (4) BPH with obstruction/lower urinary tract symptoms: - Continue tamsulosin (5) Heterozygous factor V Leiden mutation: With history of Right upper extremity DVT - D-dimer elevated even with age adjusted- CTA of chest negative for PE - Trezevant 1-b/l venous dopplers were obtained and negative for DVT - Doesn't appear to be on any chronic ACT (6) Elevated serum glucose: Elevated random glucose without the diagnosis of DM - Carb consistent diet - Doesn't appear Ha1c was ordered - FBS 101 on [facility] 04/15, f/u with PCP (7) Abnormal chest CT: Loculated cystic left lower lobe collection with stable measurements since 2018 - most likely pseudotumor as this is loculated in the pulmonary fissure - Asymptomatic and without evidence of overt heart failure as well - Follow with PCP At this time, pt is medically and hemodynamically stable for discharge home. Nuclear stress test negative, no further cardiac interventions needed at this time. Can follow up with Dr. Lynne as an outpatient, appointment to me arranged by him. Post op instructions as per Dr. Lynne. Recommend f/u with PCP within 7 days of discharge. Above plan of care has been d/w Dr. Jordan who has also seen and evaluated this patient prior to discharge and is in agreement with the aforementioned. 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 SPECIAL CARE INSTRUCTIONS: * If bleeding occurs, apply direct pressure to area for 5 minutes. * Call your doctor if you have severe pain, fever, drainage or bleeding at site. * Keep dressing on and dry for 48 hours then remove. * Keep any scheduled doctor's appointment. * Implant Card - hand held device with website information given. SKIN IRRITATION: * You may experience some redness and/or swelling in the area where radiation was administered. If any skin irritation occurs, please contact your family physician. FOLLOW UP VISIT: Keep any scheduled doctor appointments. Pending Studies at Discharge: No Stand-Alone Forms: [employer], Smoking Cessation Medications and DC Order Prescriptions: Continued cholecalciferol (vitamin D3) [Vitamin D3] 2,000 unit Tablet 2,000 unit PO BID RF: 0 cyanocobalamin (vitamin B-12) [Vitamin B-12] 1,000 mcg Tablet 1,000 mcg PO QAM RF: 0 Elderberry Zinc Vitamin C 1 tab PO BID RF: 0 tamsulosin [Flomax] 0.4 mg capsule 0.4 mg PO HS RF: 0 dutasteride 0.5 mg capsule 0.5 mg PO QAM RF: 0 Discharge Orders: Discharge Order (Routine); Ordered 04/15/21 Ordered By: Sophia Mota Admission Data Admit Date/Time: 04/12/21 13:09 Attending Provider: Stevenson Jordan Admit Provider: Jesus Montanez Primary Care Provider: Ian Hubbard Other Providers: Jesus Montanez ; Naveed Piña Other Interventions: Discharge Summary Assessment (RN) Last Done: 04/15/21 13:15 Supervising Physician Co-Signing Physician Notes During face to face encounter, obtained history of hospital stay, and physical examination. Reviewed above note and agree with it. Discussed with patient and ROSSANA Mota discharge plan. Patient agrees. Patient admitted with a heart block Required pacemaker. Coding Level of Care Code D/C DAY MANAGEMENT >30 MINS Diagnoses AV heart block I44.30 Elevated troponin R77.8 Chest discomfort R07.89 BPH with obstruction/lower urinary tract symptoms N40.1; N13.8 Heterozygous factor V Leiden mutation D68.51 Elevated serum glucose R73.[address] R93.89
--- NOTE | 2021-04-15 13:01 | Myocardial Perfusion Study ---
Date of Service April 15, 2021 Myocardial Perfusion Study [facility] Myocardial Perfusion Study Report ONE DAY NUCLEAR MEDICINE LEXISCAN TECHNETIUM 99M MYOCARDIAL PERFUSION SCAN Indication: Elevated troponin Baseline ECG: Normal sinus rhythm with nonspecific interventricular conduction delay and nonspecific T wave abnormalities inferior leads. Stress ECG: No Lexiscan induced ST changes. Hemodynamics: HR sukumar from 77 bpm to 87 bpm representing 58% MPHR. BP 150/92 mmHg rest, 136/76 mmHg during stress. Technique: For the stress portion of the study 10.7 mCi of Technetium 99m Cardiolite IV was injected at 7:45 on 04/15/2021. 30 minutes following the injection, imaging of the heart was performed in multiple projections. For the rest portion of the study, 32.3 mCi of Technetium 99m Cardiolite was injected IV at 9:25. One hour following the injection, imaging of the hear was performed in the same projections. Findings: Rotating and raw images were reviewed in detail. Potential sources of attenuation include significant gut uptake impacting the inferior imaging border of the heart. No significant extracardiac pathologic uptake. Short axis, vertical long axis and horizontal long axis images were reviewed in detail. No visual transient ischemic dilation. Small to moderate size fixed perfusion defect involving the inferolateral wall was felt to be most likely artifactual secondary to gut interference, since gated images showed normal wall motion and review of echocardiogram showed normal inferolateral wall motion as well. Gated images: LV is non-dilated. EDV 132 ml.ESV 86 ml. Calculated EF=35%. No wall motion abnormalities. SUMMARY: 1. Small to moderate fixed inferolateral perfusion defect felt to be artifactual. 2. No ischemic appearing wall motion abnormalities. 3. Nondilated left ventricle with reduced systolic function (EF=35%). Likely underestimates true ejection fraction due to artifact interference. 4. Non-diagnostic stress ECG due to inability to reach target HR; no ischemic changes or dysrhythmias. [facility] [place] Indication for Procedure (1) Elevated troponin: Procedure Code Procedure 1: Myocardial Perfusion Codes: 75266 Cardiovascular Stress Test, multiple Procedure 2: Myocardial Perfusion Codes: 17052 Cardiovascular Stress Test, supervision only Procedure 3: Myocardial Perfusion Codes: 89854 Cardiovascular Stress Test, interpretation and report
== END 2021-04-15 14:05 | disposition home or self-care (01) | DRG 243 ==
LOC: ED 10:16 → SUATTDRO 13:09 → 2S 13:09